=== PATIENT | female | born 1940 | race Caucasian/White ===

== ENCOUNTER → 2018-07-16 11:31 | Outpatient (CLI) | payer MEDICARE, OTHER, SELFPAY ==
--- NOTE | 2018-07-16 11:39 | RAD_ITS ---
STUDY: X-RAY - LEFT KNEE REASON FOR EXAM: Female, 78 years old. Pain. TECHNIQUE: 4 view(s) of the knee. COMPARISON: None. FINDINGS: Normal visualized distal femur. Normal visualized proximal tibia and fibula. Normal proximal tibiofibular articulation. There is no demonstrated fracture. Moderate narrowing of the medial tibiofemoral compartment, without irregularities or significant osteophytes. Normal lateral femorotibial compartment. Normal patellofemoral articulation. There is no demonstrated joint effusion. The soft tissue structures are unremarkable. RAD/Knee 4 or More Views IMPRESSION: No acute abnormality. Medial compartment degenerative changes less than typical for age. Electronically Signed: Ravinder Malhotra MD at 20:54 EDT , Service support ,
--- NOTE | 2018-07-16 11:40 | RAD_ITS ---
STUDY: X-RAY - RIGHT KNEE REASON FOR EXAM: Female, 78 years old. Pain. TECHNIQUE: 4 view(s) of the knee. COMPARISON: None. FINDINGS: Normal visualized distal femur. Normal visualized proximal tibia and fibula. Normal proximal tibiofibular articulation. There is no demonstrated fracture. 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 Normal lateral femorotibial compartment. There is mild degenerative arthrosis of the patellofemoral articulation. There is no demonstrated joint effusion. The soft tissue structures are unremarkable. RAD/Knee 4 or More Views IMPRESSION: No acute fracture or dislocation. Degenerative changes. Electronically Signed: Ravinder Malhotra MD at 20:55 EDT , Service support ,
== END ==
PROVIDERS: Family Provider Internal Medicine; PCP Internal Medicine; Referring Provider Internal Medicine; Visit Provider Internal Medicine
DX: M25.561 Pain in right knee (principal); M25.562 Pain in left knee; G89.29 Other chronic pain
CPT/HCPCS: 73564

== ENCOUNTER → 2018-09-03 14:13 | Outpatient (CLI) | payer MEDICARE, OTHER, SELFPAY ==
[2014-06-18 00:58] VITALS: BMI 35.9
[2018-09-03 14:33] LABS: International Normalized Ratio 2.7; Prothrombin Time (Protime)PT. 28.4 SECONDS (11.7-14.9)
== END ==
PROVIDERS: Family Provider Internal Medicine; PCP Internal Medicine; Visit Provider Internal Medicine
DX: Z79.01 Long term (current) use of anticoagulants (principal)
CPT/HCPCS: 85610

== ENCOUNTER → 2018-09-28 12:18 | Outpatient (CLI) | payer MEDICARE, OTHER, SELFPAY ==
[2014-06-18 00:58] VITALS: BMI 35.9
[2018-09-28 12:42] LABS: International Normalized Ratio 2.5; Prothrombin Time (Protime)PT. 26.8 SECONDS (11.7-14.9)
== END ==
PROVIDERS: Family Provider Internal Medicine; PCP Internal Medicine; Referring Provider Internal Medicine; Visit Provider Internal Medicine
DX: Z79.01 Long term (current) use of anticoagulants (principal)
CPT/HCPCS: 85610

== ENCOUNTER → 2018-10-02 09:53 | Outpatient (CLI) | payer MEDICARE, OTHER, SELFPAY ==
[2014-06-18 00:58] VITALS: BMI 35.9
[2018-10-02 10:08] LABS: International Normalized Ratio 1.3; Prothrombin Time (Protime)PT. 16.1 SECONDS (11.7-14.9)
== END ==
PROVIDERS: Family Provider Internal Medicine; PCP Internal Medicine; Referring Provider Internal Medicine; Visit Provider Internal Medicine
DX: Z79.01 Long term (current) use of anticoagulants (principal)
CPT/HCPCS: 85610

== ENCOUNTER → 2019-12-07 09:58 | Outpatient (CLI) | payer MEDICARE, OTHER, SELFPAY ==
[2014-06-18 00:58] VITALS: BMI 35.9
[2019-12-07 10:23] LABS: International Normalized Ratio 2.5
== END ==
PROVIDERS: PCP Internal Medicine; Referring Provider Internal Medicine; Visit Provider Internal Medicine
DX: I26.99 Other pulmonary embolism without acute cor pulmonale (principal)
CPT/HCPCS: 85610

== ENCOUNTER → 2019-12-10 10:08 | Outpatient (CLI) | payer MEDICARE, OTHER, SELFPAY ==
[2019-12-10 10:30] LABS: International Normalized Ratio 2.4; Prothrombin Time (Protime)PT. 25.8 SECONDS (11.7-14.9)
== END ==
PROVIDERS: PCP Internal Medicine; Referring Provider Internal Medicine; Visit Provider Internal Medicine
DX: Z79.01 Long term (current) use of anticoagulants (principal)
CPT/HCPCS: 85610

== ENCOUNTER → 2019-12-15 10:11 | Outpatient (CLI) | payer MEDICARE, OTHER, SELFPAY ==
[2014-06-18 00:58] VITALS: BMI 35.9
== END ==
PROVIDERS: PCP Internal Medicine; Visit Provider Internal Medicine
DX: Z79.01 Long term (current) use of anticoagulants (principal)
CPT/HCPCS: 85610

== ENCOUNTER → 2020-01-11 11:30 | Outpatient (CLI) | payer MEDICARE, OTHER, SELFPAY ==
[2014-06-18 00:58] VITALS: BMI 35.9
[2020-01-11 16:00] LABS: International Normalized Ratio 2.3; Prothrombin Time (Protime)PT. 24.9 SECONDS (11.7-14.9)
== END ==
PROVIDERS: PCP Internal Medicine; Referring Provider Internal Medicine; Visit Provider Internal Medicine
DX: I26.99 Other pulmonary embolism without acute cor pulmonale (principal)
CPT/HCPCS: 36415; 85610

== ENCOUNTER → 2020-03-06 14:18 | Outpatient (CLI) | payer MEDICARE, OTHER, SELFPAY ==
--- NOTE | 2020-03-06 14:21 | VDLE_ITS ---
Reason For Study: PAIN Procedure LEFT This is a venous duplex using B-mode, color GSV is normal. flow and spectral Doppler. CFV is compressible, spontaneous, phasic, Exam performed in department. competent, and demonstrates normal The exam was diagnostic. augmentation. A preliminary report was called and/or faxed FV is compressible, spontaneous, phasic, to Dr. Mosqueda @ [phone] @ 3:15 pm. competent and demonstrates normal Image #1 is of the LEFT POP V. augmentation. POP V is compressible, spontaneous, phasic, competent and demonstrates normal augmentation. T/P Trunk is compressible. PTV is compressible. LT PerV is compressible. NONVASCULAR structure noted in left pop fossa space measuring 4.3cm x 2.2cm. Lump noted on anterior kaplan measuring 2.33cm x 1.16cm C/W a hematoma. Interpretation Summary Deep veins of the left lower extremity are patent and compressible segmentally. There is no evidence of left lower extremity deep vein thrombosis. Valvular competence appears intact within the proximal deep venous system on the left . The left great saphenous vein appears patent and compressible segmentally. A non-vascular, hypoechoic structure is noted in the left popliteal space, measuring 4.3 cm x 2.2 cm. This probably represents a popliteal cyst. There appears to be a hematoma on the left pre-tibial area, measuring 2.33 cm x 1.16 cm. Clinical correlation is advised. Ordering Physician: Stacia Mosqueda Referring Physician: Stacia Mosqueda Performed By: Judy Romero, ANASTASIYA, RVT
== END ==
PROVIDERS: PCP Internal Medicine; Referring Provider Internal Medicine; Visit Provider Internal Medicine
DX: M79.661 Pain in right lower leg (principal)
CPT/HCPCS: 93971

== ENCOUNTER 2020-05-12 16:06 | Emergency (ER) | payer MEDICARE, OTHER, SELFPAY ==
[2020-05-12] VITALS (11 sets, daily range): BP systolic 125–158; BP diastolic 66–129; PULSE 60–82; RESP 16–22; TEMP 36.1; O2SAT 96–99; BMI 33.6
--- NOTE | 2020-05-12 16:48 | RAD_ITS ---
STUDY: X-RAY - RIGHT SHOULDER REASON FOR EXAM: Female, 80 years old. pt states fell on right shoulder today, c/o right shoulder pain radiating down arm with movement TECHNIQUE: 2 view(s) of the shoulder. COMPARISON: None. FINDINGS: There is complete anterior dislocation of the humeral head from the glenoid. No visualized fracture. Normal acromioclavicular joint. Normal acromion. Normal humeral head and visualized proximal humerus. The soft tissue structures are unremarkable. Normal visualized pulmonary apex. RAD/Shoulder min 2 Views IMPRESSION: Oblique anterior dislocation of the humeral head from the glenoid Electronically Signed: Giuliano Campos MD at 17:54 EST , Service support ,
[2020-05-12] MEDS: Ondansetron 4 MG/2 ML Vial IV (16:50)
[2020-05-12] MEDS: Morphine 4 MG/ML Syringe IV (16:50)
[2020-05-12] MEDS: Propofol 200 MG/20 ML Vial IV BOLUS (17:48)
--- NOTE | 2020-05-12 18:05 | RAD_ITS ---
STUDY: X-RAY - RIGHT SHOULDER REASON FOR EXAM: Female, 80 years old. post reduction right shoulder TECHNIQUE: 2 view(s) of the shoulder. COMPARISON: Initial exam on the same date at 5:15 PM FINDINGS: Follow-up study at 6:16 PM shows successful reduction of the previously dislocated right humeral head. Normal glenohumeral articulation. There is degenerative arthrosis of the acromioclavicular joint without inferior osseous spur formation. Normal acromion. No visualized fractures. Normal visualized pulmonary apex. RAD/Shoulder min 2 Views IMPRESSION: Successful reduction of the previously dislocated right humeral head Electronically Signed: Giuliano Campos MD at 19:06 EST , Service support ,
--- NOTE | 2020-05-12 18:36 | ED.VISSUMM ---
- ER Visit Summary Date of Service: 05/12/20 Chief Complaint: Right shoulder pain History of Present Illness: The patient is a [address] De. She is right-hand dominant. She reports that today she was feeding the birds and slipped on the snow and hit her right shoulder on a post. Denies any blow to the head or loss of consciousness. She was on Coumadin. She denies headache. No neck or back pain. She reports she has right shoulder pain is 3-10 at rest and 10 out of 10 with movement. She denies any numbness or weakness. Physical Examination: Vitals: Stable. Afebrile. Neck: No vertebral tenderness. Full ROM without difficulty. Cleared by NEXUS criteria. Back: No vertebral tenderness. General: A&O x 3. NAD. Cardiovascular exam: Regular rate and rhythm, no murmur, rub or gallop. Respiratory exam: Chest nontender. No crepitus. Clear to auscultation bilaterally. No wheezes or stridor. Abdominal exam: Soft, nontender, nondistended, normal bowel sounds. No pain in RUQ or LUQ specifically. No peritoneal signs. Extremity: Obvious anterior dislocation of her right shoulder. She has normal sensation light touch over her deltoid and distally. She is able to fire her deltoid. Test Results: Right shoulder x-ray shows an anterior dislocation without fracture. Repeat x-ray shows it to be reduced. CBC shows a white count of 4.1 with 71 segmented neutrophils. Chem-7 shows a chloride of 108. LFTs are normal. Lipase is normal. Emergency Department Course and Treatment: Patient initially had a IV placed and was given morphine and Zofran IV. When the x-ray was obtained she was given propofol IV. The shoulder was reduced and she tolerated this well. During her stay in the emerge department the patient developed epigastric pain that she reports is consistent with when she had pancreatitis in the past. Because of this she had blood work sent and was given a GI cocktail. She refused other pain medications. She reports that her pain is much improved. I discussed with her that if she had pancreatitis in the past that that her blood work could be falsely normal and suggested doing a CAT scan and she refused this. She would like to go home. She adamantly denies any blow to her abdomen in the fall. She denies abdominal pain recently or immediately following the fall. Treatment Plan: Patient will be discharged with [place], Zofran, and Colace. Instructed to follow-up with Dr. Overton, whom she is seen before, in 1 week for another exam. Return to the emergency department for any worsening symptoms. Disposition: To home in improved and stable condition. Impression: 1. Fall. 2. Right shoulder dislocation. 3. Reduction right shoulder dislocation. 4. Procedural sedation for 9 minutes. 5. Abdominal pain, uncertain cause. This note was generated with [employer] dictation software. It may contain incorrect words, spelling, and punctuation that were not noted in review of the chart prior to signing ED Disposition - Plan for ED Patient: Instructions: ED Dislocation: Shoulder (Reduced) Prescriptions: Docusate Sodium [Colace] 100 mg PO DAILY #20 cap Prescription Printed Hydrocodone Bitart/Apap 5-325 [[place] 5MG-325MG] 1 tab PO Q4H PRN PRN 2 Days #10 tab PRN Reason: Pain Prescription Printed Ondansetron [Zofran Odt] 4 mg PO Q8H PRN PRN #10 tab PRN Reason: Nausea Prescription Printed Referrals: Bowen Overton DO [STAFF PHYSICIAN] - 1 Week
[2020-05-12] MEDS: Mag Hydrox/Al Hydrox/Simeth 30 ML UDC PO (19:22)
[2020-05-12 19:34] LABS: Absolute Neutrophil Count 2.9 X10^3/uL (2.0-7.7); Basophil# 0.02 X10^3/uL; Basophil% 0.5 % (0-1); Eosinophil# 0.01 X10^3/uL; Eosinophils% 0.2 % (0-5); Hematocrit 40.2 % (37-47); Hemoglobin 13.1 g/dL (12.0-15.0); Mean Corp Hgb Conc 32.6 g/dL (32-36); Mean Corpuscular Hgb 28.9 pg (27.0-32.0); Mean Corpuscular Volume 88.7 fL (81-99); Mean Platelet Vol. 8.6 fl (6.2-12.0); Monocyte# 0.25 X10^3/uL; Monocyte% 6.1 % (0-10); NRBC Flagged by Analyzer 0 % (0-5); Platelet Count 194 K/mm3 (150-450); RBC Distribution Width CV 14.8 % (11.6-14.6); RBC Distribution Width SD 47.6 fl (35.1-43.9); Red Blood Count 4.53 M/mm3 (4.2-5.4); White Blood Count 4.1 K/mm3 (4.4-11.0)
[2020-05-12 19:48] LABS: AST(SGOT) 26 U/L (15-37); Alanine Aminotransfer ALT/SGPT 30 U/L (13-56); Albumin, Serum 3.5 g/dL (3.2-5.0); Alkaline Phosphatase 73 U/L (45-117); Anion Gap 4 (5-15); BUN 16 mg/dL (7-18); Calcium,Total 8.7 mg/dL (8.5-10.1); Chloride 108 mmol/L (98-107); EST Glomerular Filtration Rate 86 mL/min (>60); Est Glom Filt Rate - Afr Amer 105 mL/min (>60); Estimated Creatinine Clearance 41.05 ml/min; Globulin 3.6 g/dL (2.2-4.2); Glucose 104 mg/dL (74-106); Lipase 89 U/L (73-393); Potassium 4.1 mmol/L (3.5-5.1); Protein, Total 7.1 g/dL (6.4-8.2); Sodium Level 138 mmol/L (136-145)
== END 2020-05-12 21:00 | disposition home or self-care (01) ==
PROVIDERS: Emergency Provider Emergency Medicine; PCP Internal Medicine
DX: S43.004A Unspecified dislocation of right shoulder joint, initial encounter (principal); R10.9 Unspecified abdominal pain; Z79.01 Long term (current) use of anticoagulants; W00.0XXA Fall on same level due to ice and snow, initial encounter
CPT/HCPCS: 73030; 80053; 83690; 85025; 96374; 96375; 99152; 99285; J7030; A4216; J2405

== ENCOUNTER → 2022-09-19 | Outpatient (CLI) | payer MEDICARE, OTHER, SELFPAY ==
--- NOTE | 2022-09-19 12:34 | ECHOD_ITS ---
Reason For Study: Mitral Regurgitation Procedure This was a 2D Doppler, Color Flow transthoracic echocardiogram. Exam performed in department. Left Ventricle Normal LV size. Moderate concentric left ventricular hypertrophy. The left ventricular ejection fraction is 65 %. Diastolic function is indeterminate. Right Ventricle Normal right ventricle. Atria The left atrium is severely enlarged. The right atrium is mildly enlarged. Mitral Valve Moderate mitral annular calcification. Mild (1+) mitral valve insufficiency. Tricuspid Valve Trivial tricuspid valve insufficiency. Unable to estimate RV systolic pressure due to insufficient tricuspid regurgitant envelope. Aortic Valve Mild aortic stenosis. Pulmonic Valve The pulmonic valve is not well visualized. Great Vessels Calcified aortic root. Normal sized aortic root. Pericardium/Pleural No pericardial effusion. Epicardial fat. MMode/2D Measurements & Calculations LVIDd: 4.8 cm IVSd: 1.5 cm LVOT diam: 2.0 cm LVIDs: 2.7 cm LVPWd: 1.4 cm LVOT area: 3.2 cm2 RVDd: 3.2 cm FS: 43.4 % Ao root diam: 3.6 cm LAV(MOD-bp): 61.6 ml LVAd ap4: 22.3 cm2 LA dimension: 4.7 cm LAV(MOD-bp) Indexed: 32.2 ml/m2 LVLd ap4: 6.6 cm LAV(MOD-sp2): 61.9 ml EDV(MOD-sp4): 60.6 ml LAV(MOD-sp4): 59.7 ml EDV(sp4-el): 63.3 ml LVAs ap4: 8.3 cm2 LVLs ap4: 4.8 cm ESV(MOD-sp4): 13.3 ml ESV(sp4-el): 12.1 ml EF(MOD-sp4): 78.1 % EF(sp4-el): 80.9 % SV(MOD-sp4): 47.4 ml SV(sp4-el): 51.2 ml Aortic Valve Planimetry: 1.6 cm2 LA A4 area: 20.8 cm2 RA A4 area: 17.8 cm2 Time Measurements MV dec time: 0.23 sec Doppler Measurements & Calculations MV E max hussein: 77.6 cm/sec Lat Peak E' Hussein: 6.7 cm/sec Med Peak E' Hussein: 5.3 cm/sec MV A max hussein: 101.1 cm/sec E/E' lat: 11.6 E/E' med: 14.5 MV E/A: 0.77 MV V2 max: 123.4 cm/sec MV P1/2t max hussein: 94.9 cm/sec Ao V2 max: 186.7 cm/sec MV max P.1 mmHg MV P1/2t: 84.7 msec Ao max P.0 mmHg MV V2 mean: 62.3 cm/sec Ao V2 mean: 132.0 cm/sec MV mean P.8 mmHg MV dec slope: 328.0 cm/sec2 Ao mean P.7 mmHg MV V2 VTI: 36.3 cm MVA(P1/2t): 2.6 cm2 Ao V2 VTI: 44.1 cm AV (velocity ratio): 0.75 MVA(VTI): 2.9 cm2 LUC(I,D): 2.4 cm2 LUC(V,D): 2.2 cm2 LV V1 max: 126.6 cm/sec MR max hussein: 486.7 cm/sec SV(LVOT): 105.7 ml LV V1 max P.4 mmHg MR max P.7 mmHg LV V1 mean P.0 mmHg LV V1 mean: 95.3 cm/sec LV V1 VTI: 33.1 cm PA V2 max: 102.9 cm/sec PA V2 mean: 75.1 cm/sec ECHO/Echo Complete Interpretation Summary The left ventricular ejection fraction is 65 %. Diastolic function is indeterminate. The left atrium is severely enlarged. Moderate mitral annular calcification. Mild (1+) mitral valve insufficiency. Mild aortic stenosis. Ordering Physician: Stacia Mosqueda Referring Physician: Stacia Mosqueda Performed By: Stone Burt and Student
== END | disposition home or self-care (01) ==
LOC: CVS 12:33
PROVIDERS: PCP Internal Medicine; Referring Provider Internal Medicine; Visit Provider Internal Medicine
DX: I34.0 Nonrheumatic mitral (valve) insufficiency (principal)
CPT/HCPCS: 93306

== ENCOUNTER 2024-09-21 11:36 | Inpatient (IN) | payer MEDICARE, OTHER, SELFPAY ==
[2024-09-21 11:37] VITALS: BP 162/80; PULSE 78; RESP 16; TEMP 36.7; O2SAT 98; BMI 31.4
--- NOTE | 2024-09-21 12:23 | CT_ITS ---
PROCEDURE: CTA ABD/PELVIS W/WO CONTRAST 09/21/2024 REASON FOR EXAM: RECTAL BLEEDING TECHNIQUE: CTA ABD/PELVIS W/WO CONTRAST Multiplanar Sagittal and Coronal images were obtained. CONTRAST: 100 cc Isovue 370 One or more dose reduction techniques were used (e.g., Automated exposure control, adjustment of the mA and/or kV according to patient size, use of iterative reconstruction technique). RADIATION DOSE SUMMARY: DLP: 1181.06 mGycm COMPARISON: None FINDINGS: Aorta: The abdominal aorta measures 2.8 cm of the diaphragmatic hiatus, 2.8 cm below the level of the renal vessels with scattered plaque noted. Iliac Arteries: The proximal right iliac measures 1.5 cm. The proximal left iliac measures 1.4 cm with scattered plaque noted. Celiac: Patent SMA: Patent LEAH : Patent Right Renal: Patent Left Renal: Patent Other Findings: Images through the lung bases show minimal atelectasis or scar at the left lung base. There is no free air. The liver and spleen are unremarkable. The gallbladder is absent. The adrenals are normal. The kidneys show parapelvic cysts on the right and left with no definite stone or ureteral obstruction. There is no pathologic adenopathy by size criteria. There is a 3.0 cm uncomplicated fat containing right inguinal hernia. There is diverticulosis throughout the colon with no definite acute diverticulitis. The bladder is unremarkable. The appendix is not demonstrated. CT/CTA Abd/Pelvis W/WO Contrast IMPRESSION: There is a 3.0 cm uncomplicated fat containing right inguinal hernia. There is diverticulosis throughout the colon with no definite acute diverticuli tis. Atherosclerotic plaque is noted with no evidence of significant stenosis or occ lusion in the abdomen or pelvis. Reading Location: [facility]
--- NOTE | 2024-09-21 12:24 | ED.VIS.GI ---
HPI HPI - GI History of Present Illness Chief Complaint: GI Bleed Informant: patient and family Narrative Narrative: Sent in from PCP office bright red blood per rectum. She is on warfarin history of factor V Leiden and history of PE and DVT. Last dose of warfarin yesterday. 2 days ago noted blood in her stools with clots. She had additional 4 episodes yesterday along with 3 this morning. No abdominal pain. No lightheaded symptoms. No history of colonoscopy in the past. She has seen GI Dr. Chowdhury in the past. Last bright red blood per rectum 10 AM. [facility] Medical History Hx of pancreatitis Murmur, cardiac Fatty liver Bakers cyst Vitamin D deficiency Abnormal echocardiogram History of DVT of lower extremity History of pulmonary embolus (PE) Obesity (BMI 30-39.9) Back pain GERD (gastroesophageal reflux disease) Home Medications ?Medication ?Instructions ?Recorded ?Last Taken ?Type ascorbic acid (vitamin C) 500 mg 500 mg PO DAILY 11/14/22 Unknown History tablet cinnamon bark 500 mg capsule 500 mg PO 4X/DAY 11/14/22 Unknown History (Cinnamon) coenzyme Q10 10 mg capsule 10 mg PO DAILY 11/14/22 Unknown History ergocalciferol (vitamin D2) 1,250 1,250 mcg PO QWEEK 11/14/22 Unknown History mcg (50,000 unit) capsule [id number] 8 mg-folic 400 1 tab PO DAILY 11/14/22 Unknown History mcg-K 50 mcg-lutein 300 mcg tablet (Centrum Silver Women) turmeric 400 mg capsule mg PO 11/14/22 Unknown History vitamin B complex 1 tab PO DAILY 11/14/22 Unknown History zinc gluconate 100 mg tablet PO 11/14/22 Unknown History warfarin 6 mg tablet (Jantoven) 6 mg PO DAILY@1700 12/06/22 Unknown History Allergy/AdvReac Type Severity Reaction Status Date / Time codeine Allergy Unknown Verified 09/21/24 11:38 Family History Mother Heart disease Father Heart disease Sister Heart disease Surgical History History of hysterectomy History of cholecystectomy Social History Smoking Status: Never smoker alcohol intake: never caffeine: Yes Type: coffee and tea ROS ROS ED Constitutional Constitutional ED: Denies fever(s) Cardiovascular Cardiovascular: Denies chest pain Respiratory/Chest Respiratory/Chest: Denies cough Gastrointestinal Gastrointestinal: Reports other Details: Bright red blood per rectum ; Denies abdominal pain, diarrhea or vomiting Musculoskeletal Musculoskeletal: Denies none Integumentary Denies rash or wounds Neurologic Neurologic: Denies weakness EXAM Physical Exam Const Vital Signs: 09/21/24 11:37 09/21/24 13:37 Temperature 98.1 F Temperature Source Oral Pulse Rate 78 89 Respiratory Rate 16 18 Blood Pressure 162/80 H 114/93 H Blood Pressure Mean 107 100 Pulse Ox 98 94 Oxygen Delivery Method Room Air Room Air Positive well nourished and well developed General Appearance ED: well developed and NAD HEENT Reports moist mucous membranes normocephalic and atraumatic Eyes General Eye ED: Yes normal appearance of both eyes; Negative for pale conjunctiva or scleral icterus Neck full ROM Chest Wall Chest: Negative for tenderness Resp normal respiratory effort and normal air movement Effort and Inspection: symmetric chest movement; Negative for respiratory distress Cardio regular rate, regular rhythm and no murmurs Peripheral Pulses: pulses 2+ throughout GI normal to inspection, nondistended, normoactive bowel sounds and non-tender GI Narrative: Rectum there is no hemorrhoids there was bright red blood residual noted around the anal region. Palpation: Negative for guarding or rebound tenderness present Extremity normal to inspection General Extremety ED: Negative for edema or tenderness General Extremity: Negative for edema Neuro oriented x3 and no sensory deficits noted Sensorium / Orientation: awake and alert Skin no rashes or lesions noted and no wounds MDM MDM MDM Narrative Medical decision making narrative: Interventions / MDM: Differential diagnosis: Bright red blood per rectum, chronic anticoagulation therapy, diverticular bleed Diagnosis considered but do not suspect: Diverticulitis however CT negative. My EKG interpretation: N/A Imaging independently reviewed and interpreted by myself: CT angiogram abdomen pelvis: No extravasation noted, scattered iliac plaques, fat-containing umbilical hernia. External documents reviewed: N/A Test considered but not ordered:N/A ED course: Increasing bright red blood per rectum on warfarin. No abdominal pain. Blood pressure stable. Do not feel reversal is necessary at this time. Will check labs including INR. Fluids will be started. CT angiogram obtained for evaluation of bright red blood per rectum. 1428: Blood count 11.8 it was 13.01 May 2020. Blood pressure currently 140/93. BUN [address] scan fat-containing Billick hernia, scattered plaques of the arteries however no reported extravasation was noted. On reevaluation no pain however he was just placed on the commode and she was having a bowel movement with bloody stools. INR is 2.8. I will discuss with hospitalist for admission. I spoke with Dr. Jc for admission. Re-evaluation: stable Disposition discussed with patient/family/significant other: Patient and family Case discussed with consulting clinician: hospitalist This note was generated with [employer] dictation software. It may contain incorrect words, spelling, and punctuation that were not noted in checking the note before signing. Lab Data Attestation: I reviewed the patient's lab results. Labs: Laboratory Results - last 24 hr 09/21/24 09/21/24 11:55 12:40 WBC 2.8 L RBC 3.94 L Hgb 11.8 L Hct 35.7 L MCV 90.6 MCH 29.9 MCHC 33.1 RDW Std Deviation 48.5 H RDW Coeff of Nabila 14.5 Plt Count 158 MPV 8.9 Immature Gran % (Auto) 1.500 H Neut % (Auto) 49.0 Lymph % (Auto) 40.0 Dickens % (Auto) 8.4 Eos % (Auto) 0.7 Baso % (Auto) 0.4 Absolute Neuts (auto) 1.4 L Absolute Lymphs (auto) 1.10 Nucleated RBC % 0 PT 29.9 H INR 2.8 APTT 40.7 H Sodium 141 Potassium 3.8 Chloride 107 Carbon Dioxide 22.1 Anion Gap 12 BUN 18 Creatinine 0.75 Estim Creat Clear Calc 57.54 Est GFR (MDRD) Non-Af 79 BUN/Creatinine Ratio 23.9 H Glucose 123 H Calcium 9.1 Blood Type A POSITIVE Antibody Screen NEGATIVE Radiography Diagnostic Testing: Clinical Impression(s) from Imaging Studies Abdomen/Pelvis CTA 09/21/24 12:23 IMPRESSION: There is a 3.0 cm uncomplicated fat containing right inguinal hernia. There is diverticulosis throughout the colon with no definite acute diverticulitis. Atherosclerotic plaque is noted with no evidence of significant stenosis or occlusion in the abdomen or pelvis. [facility] Plan Dx/Rx/DC Orders Clinical Impression: Rectal bleeding, Chronic anticoagulation, Hx pulmonary embolism, History of factor V Leiden mutation Disposition Disposition: Acute Care Hospital [facility]
[2024-09-21] MEDS: 0.9% Normal Saline (1000mL) 1,000 ML 125 ML IV ×2 (12:41→17:35)
[2024-09-21 12:46] LABS: Absolute Neutrophil Count 1.4 X10^3/uL (2.0-7.7); Basophil# 0.01 X10^3/uL; Basophil% 0.4 % (0-1); Eosinophil# 0.02 X10^3/uL; Eosinophils% 0.7 % (0-5); Hematocrit 35.7 % (37-47); Hemoglobin 11.8 g/dL (12.0-15.0); Mean Corp Hgb Conc 33.1 g/dL (32-36); Mean Corpuscular Hgb 29.9 pg (27.0-32.0); Mean Corpuscular Volume 90.6 fL (81-99); Mean Platelet Vol. 8.9 fl (6.2-12.0); Monocyte# 0.23 X10^3/uL; Monocyte% 8.4 % (0-10); NRBC Flagged by Analyzer 0 % (0-5); Neutrophil # 1.35 X10^3/uL (2.7-7.7); Platelet Count 158 K/mm3 (150-450); RBC Distribution Width CV 14.5 % (11.6-14.6); RBC Distribution Width SD 48.5 fl (35.1-43.9); Red Blood Count 3.94 M/mm3 (4.2-5.4); White Blood Count 2.8 K/mm3 (4.4-11.0)
[2024-09-21 12:58] LABS: International Normalized Ratio 2.8; Prothrombin Time (Protime)PT. 29.9 SECONDS (11.7-14.9)
[2024-09-21 12:59] LABS: Partial Thromboplast Time 40.7 Seconds (24.1-36.2)
[2024-09-21 13:10] LABS: Anion Gap 12 (5-15); BUN 18 mg/dL (4-19); BUN/Creat Ratio 23.9 RATIO (10-20); Calcium,Total 9.1 mg/dL (7.6-11.0); Carbon Dioxide 22.1 mmol/L (21.0-32.0); Chloride 107 mmol/L (98-108); Creatinine, Serum 0.75 mg/dL (0.70-1.20); EST Glomerular Filtration Rate 79 (>60); Estimated Creatinine Clearance 57.54 ml/min (50-250); Glucose 123 mg/dL (70-99); Potassium 3.8 mmol/L (3.3-5.1); Sodium Level 141 mmol/L (133-145)
[2024-09-21 13:37] VITALS: BP 114/93; PULSE 89; RESP 18; O2SAT 94
[2024-09-21 15:00] VITALS: BP 135/77; PULSE 62; RESP 20; O2SAT 100
--- NOTE | 2024-09-21 15:11 | PCM.HP.STD ---
HPI - General General Date of Admission: 09/21/24 Date of Service: 09/21/24 Chief Complaint: Red blood per rectum HPI Narrative DANISH YAP, is a 84-year-old female with history of DVT/PE with history of factor V Leiden on Coumadin presented to [facility] ED 09/21/2024 due to bright red blood per rectum with clots. 2 days ago she noted blood in stool and had an additional 4 episodes yesterday with 1 this morning, did have 1 more in the ED as well. No lightheadedness or abdominal pain, no history of scopes. In the ED temperature 98.1, respiratory rate 78 with blood pressure 162/80, pulse ox 98% on room air. Patient with white blood cell count 2.8 and hemoglobin 11.8, INR 2.8 and BMP overall benign aside from glucose of 123 slightly elevated. CTA of abdomen obtained which showed an uncomplicated fat-containing right inguinal hernia, diverticulosis without diverticulitis and atherosclerotic plaque with no evidence of significant stenosis or occlusion. Given patient's high risk and continued bleeding hospitalist contacted for admission. Patient evaluated with family member at bedside, reportedly patient was in her usual health until 2 days ago when she began having blood and clots in her stool, did have the 4 episodes yesterday and 3 episodes earlier today followed by 1 in the ED. Feels little bit weak but not lightheaded, no abdominal pain or epigastric pain, no nausea or vomiting, ROS otherwise negative [facility] Medical History Hx of pancreatitis Murmur, cardiac Fatty liver Bakers cyst Vitamin D deficiency Abnormal echocardiogram History of DVT of lower extremity History of pulmonary embolus (PE) Obesity (BMI 30-39.9) Back pain GERD (gastroesophageal reflux disease) Home Medications ?Medication ?Instructions ?Recorded ?Last Taken ?Type ascorbic acid (vitamin C) 500 mg 500 mg PO DAILY 11/14/22 Unknown History tablet cinnamon bark 500 mg capsule 500 mg PO 4X/DAY 11/14/22 Unknown History (Cinnamon) coenzyme Q10 10 mg capsule 10 mg PO DAILY 11/14/22 Unknown History ergocalciferol (vitamin D2) 1,250 1,250 mcg PO QWEEK 11/14/22 Unknown History mcg (50,000 unit) capsule [id number] 8 mg-folic 400 1 tab PO DAILY 11/14/22 Unknown History mcg-K 50 mcg-lutein 300 mcg tablet (Centrum Silver Women) turmeric 400 mg capsule mg PO 11/14/22 Unknown History vitamin B complex 1 tab PO DAILY 11/14/22 Unknown History zinc gluconate 100 mg tablet PO 11/14/22 Unknown History warfarin 6 mg tablet (Jantoven) 6 mg PO DAILY@1700 12/06/22 Unknown History Allergy/AdvReac Type Severity Reaction Status Date / Time codeine Allergy Unknown Verified 09/21/24 11:38 Family History Mother Heart disease Father Heart disease Sister Heart disease Surgical History History of hysterectomy History of cholecystectomy Social History Smoking Status: Never smoker alcohol intake: never caffeine: Yes Type: coffee and tea ROS ROS Narrative General: Denies fever/chills, feels a little bit weak HENT: Denies headache, denies stuffy nose, denies sore throat EYES: Denies changes in vision Resp: Denies cough, denies shortness of breath Cardiac: Denies chest pain GI: Denies abdominal pain, bright red blood per rectum bowel, denies nausea/vomiting : Denies changes in urination Extremity: Denies swelling MSK: Endorses weakness Neuro: Denies any numbness/tingling Heme: Denies any bleeding or bruising Skin: Denies rashes Psychiatric: No complaints voiced Vital Signs Vital Signs Vital Signs: 09/21/24 11:37 09/21/24 13:37 Temperature 98.1 F Temperature Source Oral Pulse Rate 78 89 Respiratory Rate 16 18 Blood Pressure 162/80 H 114/93 H Blood Pressure Mean 107 100 Pulse Ox 98 94 Oxygen Delivery Method Room Air Room Air Weight Weight: 85.531 kg Body Mass Index (BMI) 31.4 Physical Exam Narrative General: Alert, oriented, no apparent distress HEENT: Atraumatic, normocephalic Eyes: Anicteric, normal conjunctiva, extraocular movements grossly intact Neck: Supple Respiratory: Clear to auscultation bilaterally, normal respiratory effort Cardiovascular: Regular rate and rhythm, systolic ejection murmur GI: Soft, nontender, nondistended Extremities: No edema Musculoskeletal: Moving all extremities Neuro: No overt focal neurological deficits Skin: No rashes appreciated Psych: Cooperative Results Lab / Micro Data 09/21/24 11:55 09/21/24 11:55 Labs: Laboratory Results - last 24 hr 09/21/24 11:55: WBC 2.8 L, RBC 3.94 L, Hgb 11.8 L, Hct 35.7 L, MCV 90.6, MCH 29.9, MCHC 33.1, RDW Std Deviation 48.5 H, RDW Coeff of Nabila 14.5, Plt Count 158, MPV 8.9, Immature Gran % (Auto) 1.500 H, Neut % (Auto) 49.0, Lymph % (Auto) 40.0, [place] % (Auto) 8.4, Eos % (Auto) 0.7, Baso % (Auto) 0.4, Absolute Neuts (auto) 1.4 L, Absolute Lymphs (auto) 1.10, Nucleated RBC % 0, PT 29.9 H, INR 2.8, APTT 40.7 H, Sodium 141, Potassium 3.8, Chloride 107, Carbon Dioxide 22.1, Anion Gap 12, BUN 18, Creatinine 0.75, Estim Creat Clear Calc 57.54, Est GFR (MDRD) Non-Af 79, BUN/Creatinine Ratio 23.9 H, Glucose 123 H, Calcium 9.1 09/21/24 12:40: Blood Type A POSITIVE, Antibody Screen NEGATIVE Imaging Radiology Impression Abdomen/Pelvis CTA 09/21/24 12:23 IMPRESSION: There is a 3.0 cm uncomplicated fat containing right inguinal hernia. There is diverticulosis throughout the colon with no definite acute diverticulitis. Atherosclerotic plaque is noted with no evidence of significant stenosis or occlusion in the abdomen or pelvis. Reading Location: [facility] Assessment & Plan Assessment/Plan (1) Rectal bleeding: (2) Hx pulmonary embolism: (3) History of factor V Leiden mutation: PLAN: Plan # Bright red blood per rectum, suspect acute GI bleed - Will trend H&H -When evaluated patient in ED blood pressure was in the 150s and patient was not feeling lightheaded so we will hold off on reversing Coumadin especially given her high risk of clotting, if patient continues to have multiple episodes or develops any low blood pressure, tachycardia, symptoms will reverse -GI consult -N.p.o. midnight -Clear liquid diet, bowel prep # History of DVT/PE with factor V Leiden -INR 2.8, will hold off on reversing as above -Last clot she estimates was before 2019 -Holding home Coumadin #DVT ppx: SCDs Elena Jc MD Charges/Coding Visit Charges Inpatient E&M: 56279 Init Hosp L2
[2024-09-21 15:40] VITALS: BP 135/77; PULSE 62; RESP 20; TEMP 36.7; O2SAT 100
--- NOTE | 2024-09-21 15:45 | CASEMGMT ---
Care Management Face to Face with patient for initial transition planning/care coordination assessment in the ED.? This service writer advisor introduced self and role at [facility]. Patient alert and oriented. Patient willing to participate in assessment and is able to answer all questions appropriately.? Care providers, pharmacy, and demographics verified. Admitting Diagnosis: ?GI Bleed Other diagnosis history: ?DVT, PE, GERD, ?hx pancreatitis PCP: ?Panda Specialists: ?None Preferred Pharmacy: [facility] pharmacy Insurance: ?Medicare Prescription Benefit: ?Yes Living Will/HPOA: ?Completed LNOK: ?daughter Living Arrangements: ?Patient lives alone in a condo, reports to being independent with ADLs and IADLs Transportation: ?patient drives DME: ?grab bar in shower, shower bench, blood pressure cuff,? 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 Patient denies any further needs or concerns at this time. Disposition Plan: admission to acute; RN CM/SW to follow for discharge planning needs that may arise. Lianna Santiago, DULSER, METAL BONDING CRIB ATTENDANT
--- NOTE | 2024-09-21 15:45 | CASEMGMT ---
Care Management Face to Face with patient for initial transition planning/care coordination assessment in the ED.? This freelance writer introduced self and role at [facility]. Patient alert and oriented. Patient willing to participate in assessment and is able to answer all questions appropriately.? Care providers, pharmacy, and demographics verified. Admitting Diagnosis: ?GI Bleed Other diagnosis history: ?DVT, PE, GERD, ?hx pancreatitis PCP: ?Panda Specialists: ?None Preferred Pharmacy: [facility] pharmacy Insurance: ?Medicare Prescription Benefit: ?Yes Living Will/HPOA: ?Completed LNOK: ?daughter Living Arrangements: ?Patient lives alone in a condo, reports to being independent with ADLs and IADLs Transportation: ?patient drives DME: ?grab bar in shower, shower bench, blood pressure cuff,? 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 Patient denies any further needs or concerns at this time. Disposition Plan: admission to acute; RN CM/SW to follow for discharge planning needs that may arise. Lianna Santiago, DINING ROOM HOSTESS, RESTAURANT CREW MEMBER
[2024-09-21 17:31] VITALS: BP 137/69; PULSE 62; RESP 18; TEMP 36.6; O2SAT 97
[2024-09-21] MEDS: 0.9% Saline Lock 10 ML Syringe IV (17:35)
[2024-09-21 17:36] VITALS: BMI 33.9
[2024-09-21] MEDS: Polyethylene Glycol 3350 BOWEL PREP PO (18:48)
[2024-09-21] MEDS: Bisacodyl 5 MG Tablet 20 MG PO (18:52)
--- NOTE | 2024-09-21 18:56 | CON.PCM.GI_ITS ---
HPI Consult Data Date of Consult: 09/21/24 HPI Narrative Reason for Consultation: GI bleed HPI Narrative: DANISH YAP, is a 84 F who presents with lower GI bleed. She was sent in from PCP office bright red blood per rectum. She is on warfarin history of factor V Leiden and history of PE and DVT. Her last dose of warfarin yesterday. She admits to starting to have lower GI bleeding 2 days ago which caused her to see her PCP. She had additional 4 episodes yesterday along with 3 this morning. She denies any abdominal pain. She has no history of colonoscopy in the past. Her INR in the ED was 2.8 and her hemoglobin was 11.6. CT/CTA Abd/Pelvis W/WO Contrast IMPRESSION: There is a 3.0 cm uncomplicated fat containing right inguinal hernia. There is diverticulosis throughout the colon with no definite acute diverticulitis. Atherosclerotic plaque is noted with no evidence of significant stenosis or occlusion in the abdomen or pelvis PFSH Medical History Hx of pancreatitis Murmur, cardiac Fatty liver Bakers cyst Vitamin D deficiency Abnormal echocardiogram History of DVT of lower extremity History of pulmonary embolus (PE) Obesity (BMI 30-39.9) Back pain GERD (gastroesophageal reflux disease) Home Medications ?Medication ?Instructions ?Recorded ?Last Taken ?Type ascorbic acid (vitamin C) 500 mg 500 mg PO DAILY suppl ement 11/14/22 Unknown History tablet cinnamon bark 500 mg capsule 500 mg PO 4X/DAY suppleme nt 11/14/22 Unknown History (Cinnamon) coenzyme Q10 10 mg capsule 10 mg PO DAILY supplement 0 11/14/22 Unknown History ergocalciferol (vitamin D2) 1,250 1,250 mcg PO QWEEK s upplement 11/14/22 Unknown History mcg (50,000 unit) capsule [id number]-wwsg-csun 8 mg-folic 400 1 tab PO DAILY suppl ement 11/14/22 Unknown History mcg-K 50 mcg-lutein 300 mcg tablet (Centrum Silver Women) turmeric 400 mg capsule 400 mg PO DAILY supplement 0 11/14/22 Unknown History vitamin B complex 1 tab PO DAILY supplement Unknown History zinc gluconate 100 mg tablet 100 mg PO DAILY supplemen t 11/14/22 Unknown History warfarin 6 mg tablet (Jantoven) 6 mg PO DAILY@1700 blo od thinner 12/06/22 Unknown History Allergy/AdvReac Type Severity Reaction Status Date / Time codeine Allergy Unknown Verified 09/21/24 11:38 Family History Mother Heart disease Father Heart disease Sister Heart disease Surgical History History of hysterectomy History of cholecystectomy Social History Smoking Status: Never smoker alcohol intake: never caffeine: Yes Type: coffee and tea ROS Constitutional Constitutional: Denies fatigue, fever(s), poor appetite, weight gain or weight loss Gastrointestinal Gastrointestinal: Denies belching, bloating, change in bowel habits, change in stool character, chewing difficulty, coffee ground emesis, constipation, cramping, diarrhea, dyspepsia, dysphagia, early satiety, excessive flatus, fecal incontinence, heartburn, hematemesis, hematochezia, hemorrhoids, loose stools, melena, nausea, odynophagia, rectal bleeding, tenesmus, vomiting or weight changes Physical Exam Const alert, oriented x3, no apparent distress and healthy appearing General Appearance: cooperative GI normal to inspection, nondistended, normoactive bowel sounds, soft to palpation, non-tender and non-distended Percussion: normal to percussion Rectal Exam: deferred Lab / Micro Data 09/21/24 11:55 09/21/24 11:55 Labs: Laboratory Results - last 24 hr 09/21/24 11:55: WBC 2.8 L, RBC 3.94 L, Hgb 11.8 L, Hct 35.7 L, MCV 90.6, MCH 29.9, MCHC 33.1, RDW Std Deviation 48.5 H, RDW Coeff of Nabila 14.5, Plt Count 158, MPV 8.9, Immature Gran % (Auto) 1.500 H, Neut % (Auto) 49.0, Lymph % (Auto) 40.0, [place] % (Auto) 8.4, Eos % (Auto) 0.7, Baso % (Auto) 0.4, Absolute Neuts (auto) 1.4 L, Absolute Lymphs (auto) 1.10, Nucleated RBC % 0, PT 29.9 H, INR 2.8, APTT 40.7 H, Sodium 141, Potassium 3.8, Chloride 107, Carbon Dioxide 22.1, Anion Gap 12, BUN 18, Creatinine 0.75, Estim Creat Clear Calc 57.54, Est GFR (MDRD) Non-Af 79, BUN/Creatinine Ratio 23.9 H, Glucose 123 H, Calcium 9.1 09/21/24 12:40: Blood Type A POSITIVE, Antibody Screen NEGATIVE, Crossmatch See Detail Imaging Radiology Impression Abdomen/Pelvis CTA 09/21/24 12:23 IMPRESSION: There is a 3.0 cm uncomplicated fat containing right inguinal hernia. There is diverticulosis throughout the colon with no definite acute diverticulitis. Atherosclerotic plaque is noted with no evidence of significant stenosis or occlusion in the abdomen or pelvis. Reading [facility] Assessment & Plan Assessment/Plan (1) Chronic anticoagulation: (2) Hx pulmonary embolism: (3) Rectal bleeding: PLAN: 84-year-old with history of factor V Leiden disorder causing multiple PEs and DVTs on chronic anticoagulation with warfarin presents with acute onset of lower lower GI bleeding over the last 2 days. Differential diagnosis does include diverticular bleeding, hemorrhoidal bleeding, stercoral ulcer, angiodysplasia, neoplasia. She is having a colonoscopy in the past. She should undergo colonoscopy about her lower GI tract since she needs to be on anticoagulation and cannot be stopped. She was explained alternatives, risk, benefits including not withstanding bleeding, infection, sepsis, perforation, need for emergent surgery and . She will have an ASA of 3. Charges/Coding Visit Charges Inpatient E&M: 39932 Init Hosp L3
[2024-09-21 20:52] LABS: Hematocrit 33.6 % (37-47); Hemoglobin 10.8 g/dL (12.0-15.0); Mean Corp Hgb Conc 32.1 g/dL (32-36); Mean Corpuscular Hgb 29.8 pg (27.0-32.0); Mean Corpuscular Volume 92.6 fL (81-99); Mean Platelet Vol. 8.8 fl (6.2-12.0); Platelet Count 138 K/mm3 (150-450); RBC Distribution Width CV 14.6 % (11.6-14.6); RBC Distribution Width SD 49.7 fl (35.1-43.9); Red Blood Count 3.63 M/mm3 (4.2-5.4); White Blood Count 3.2 K/mm3 (4.4-11.0)
[2024-09-21 21:11] VITALS: BMI 33.9
[2024-09-21 21:20] VITALS: BP 135/59; PULSE 69; RESP 18; TEMP 36.3; O2SAT 97
[2024-09-21 21:21] LABS: International Normalized Ratio 2.8; Prothrombin Time (Protime)PT. 29.7 SECONDS (11.7-14.9)
[2024-09-21] MEDS: Ondansetron 4 MG/2 ML Vial IV (23:46)
[2024-09-22] VITALS (11 sets, daily range): BP systolic 83–140; BP diastolic 38–91; PULSE 64–82; RESP 14–18; TEMP 36.1–36.8; O2SAT 93–100; BMI 33.9
[2024-09-22 00:47] LABS: Hematocrit 28.6 % (37-47); Hemoglobin 9.4 g/dL (12.0-15.0); Mean Corp Hgb Conc 32.9 g/dL (32-36); Mean Corpuscular Volume 91.4 fL (81-99); Mean Platelet Vol. 8.9 fl (6.2-12.0); Platelet Count 135 K/mm3 (150-450); RBC Distribution Width CV 14.6 % (11.6-14.6); RBC Distribution Width SD 49.1 fl (35.1-43.9); Red Blood Count 3.13 M/mm3 (4.2-5.4); White Blood Count 2.9 K/mm3 (4.4-11.0)
[2024-09-22] MEDS: 0.9% Normal Saline (1000mL) 1,000 ML 125 ML IV (02:05)
[2024-09-22 05:17] LABS: Absolute Lymphocyte Count 1.51 X10^3/uL (0.83-4.51); Absolute Neutrophil Count 1.6 X10^3/uL (2.0-7.7); Basophil# 0.01 X10^3/uL; Basophil% 0.3 % (0-1); Eosinophil# 0.02 X10^3/uL; Eosinophils% 0.6 % (0-5); Hematocrit 29.5 % (37-47); Hemoglobin 9.6 g/dL (12.0-15.0); Lymphocyte # 1.51 X10^3/ul (0.83-4.51); Mean Corp Hgb Conc 32.5 g/dL (32-36); Mean Corpuscular Hgb 29.5 pg (27.0-32.0); Mean Corpuscular Volume 90.8 fL (81-99); Mean Platelet Vol. 9.2 fl (6.2-12.0); Monocyte# 0.26 X10^3/uL; Monocyte% 7.6 % (0-10); NRBC Flagged by Analyzer 0 % (0-5); Neutrophil # 1.59 X10^3/uL (2.7-7.7); Neutrophil % 46.3 % (47-70); Platelet Count 150 K/mm3 (150-450); RBC Distribution Width CV 14.6 % (11.6-14.6); RBC Distribution Width SD 48.7 fl (35.1-43.9); Red Blood Count 3.25 M/mm3 (4.2-5.4); White Blood Count 3.4 K/mm3 (4.4-11.0)
[2024-09-22 05:28] LABS: International Normalized Ratio 2.9; Prothrombin Time (Protime)PT. 30.9 SECONDS (11.7-14.9)
[2024-09-22 05:45] LABS: Anion Gap 13 (5-15); BUN 10 mg/dL (4-19); BUN/Creat Ratio 15.7 RATIO (10-20); Calcium,Total 8.2 mg/dL (7.6-11.0); Chloride 109 mmol/L (98-108); Creatinine, Serum 0.65 mg/dL (0.70-1.20); EST Glomerular Filtration Rate 87 (>60); Estimated Creatinine Clearance 55.67 ml/min (50-250); Glucose 144 mg/dL (70-99); Potassium 3.5 mmol/L (3.3-5.1); Sodium Level 140 mmol/L (133-145)
--- NOTE | 2024-09-22 05:55 | EKG12_ITS ---
Test Reason : PRE-OP Blood Pressure : */* mmHG Vent. Rate : 65 BPM Atrial Rate : 65 BPM P-R Int : 164 ms QRS Dur : 76 ms QT Int : 434 ms P-R-T Axes : 70 -9 -17 degrees QTcB Int : 451 ms Sinus rhythm with Premature supraventricular complexes Minimal voltage criteria for LVH, may be normal variant ( R in aVL ) Nonspecific T wave abnormality Abnormal ECG When compared with ECG of 17-Jun-2014 21:17, Premature supraventricular complexes are now Present Nonspecific T wave abnormality, worse in Lateral leads Confirmed by KEVIN ORTEGA, LALY ([id number]), graphics editor CRUZITO GAGE ([id number]) on 09/22/2024 1:21:01 PM Referred By: Elena Jc Confirmed By: LALY BROWN MD
--- NOTE | 2024-09-22 05:55 | EKG12_ITS ---
Test Reason : PRE-OP Blood Pressure : */* mmHG Vent. Rate : 65 BPM Atrial Rate : 65 BPM P-R Int : 164 ms QRS Dur : 76 ms QT Int : 434 ms P-R-T Axes : 70 -9 -17 degrees QTcB Int : 451 ms Sinus rhythm with Premature supraventricular complexes Minimal voltage criteria for LVH, may be normal variant ( R in aVL ) Nonspecific T wave abnormality Abnormal ECG When compared with ECG of 17-Jun-2014 21:17, Premature supraventricular complexes are now Present Nonspecific T wave abnormality, worse in Lateral leads Confirmed by KEVIN ORTEGA, LALY ([id number]), food editor CRUZITO GAGE ([id number]) on 09/22/2024 1:21:01 PM Referred By: Elena Jc Confirmed By: LALY BROWN MD
[2024-09-22 09:10] LABS: Hemoglobin 8.5 g/dL (12.0-15.0); Mean Corp Hgb Conc 32.7 g/dL (32-36); Mean Corpuscular Hgb 29.4 pg (27.0-32.0); Mean Platelet Vol. 9.1 fl (6.2-12.0); Platelet Count 129 K/mm3 (150-450); RBC Distribution Width CV 14.6 % (11.6-14.6); RBC Distribution Width SD 47.9 fl (35.1-43.9); Red Blood Count 2.89 M/mm3 (4.2-5.4); White Blood Count 2.6 K/mm3 (4.4-11.0)
--- NOTE | 2024-09-22 12:12 | PCM.PN.HOSP ---
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 Patient was mildly fatigued appearing but otherwise laying back comfortably in bed and in no acute distress. She had been given an enema in preparation for colonoscopy later this afternoon and was having loose brown bowel movements thus far. No other acute concerns currently. Objective Data Objective Data Vital Signs: Vital Signs Temp Pulse Resp BP Pulse Ox O2 Del Method 97.9 F 75 14 105/47 L 98 Room Air 09/22/24 11:07 09/22/24 11:07 09/22/24 11:07 09/22/24 11:07 09/22/24 11:07 09/22/24 11:07 Oxygen Delivery Method Room Air Weight: 86.863 kg Body Mass Index (BMI) 33.9 Intake & Output: Intake and Output for Last 24 Hours 09/20/24 09/21/24 09/22/24 23:59 23:59 23:59 Intake Total 1240 / 1240 1000 / 1000 Balance 1240 / 1240 1000 / 1000 Lab / Micro Data 09/22/24 08:50 09/22/24 04:56 Labs: Laboratory Results - last 24 hr 09/21/24 11:55: WBC 2.8 L, RBC 3.94 L, Hgb 11.8 L, Hct 35.7 L, MCV 90.6, MCH 29.9, MCHC 33.1, RDW Std Deviation 48.5 H, RDW Coeff of Nabila 14.5, Plt Count 158, MPV 8.9, Immature Gran % (Auto) 1.500 H, Neut % (Auto) 49.0, Lymph % (Auto) 40.0, [place] % (Auto) 8.4, Eos % (Auto) 0.7, Baso % (Auto) 0.4, Absolute Neuts (auto) 1.4 L, Absolute Lymphs (auto) 1.10, Nucleated RBC % 0, PT 29.9 H, INR 2.8, APTT 40.7 H, Sodium 141, Potassium 3.8, Chloride 107, Carbon Dioxide 22.1, Anion Gap 12, BUN 18, Creatinine 0.75, Estim Creat Clear Calc 57.54, Est GFR (MDRD) Non-Af 79, BUN/Creatinine Ratio 23.9 H, Glucose 123 H, Calcium 9.1 09/21/24 12:40: Blood Type A POSITIVE, Antibody Screen NEGATIVE, Crossmatch See Detail 09/21/24 20:30: WBC 3.2 L, RBC 3.63 L, Hgb 10.8 L, Hct 33.6 L, MCV 92.6, MCH 29.8, MCHC 32.1, RDW Std Deviation 49.7 H, RDW Coeff of Nabila 14.6, Plt Count 138 L, MPV 8.8, PT 29.7 H, INR 2.8 09/22/24 00:40: WBC 2.9 L, RBC 3.13 L, Hgb 9.4 L, Hct 28.6 L, MCV 91.4, MCH 30.0, MCHC 32.9, RDW Std Deviation 49.1 H, RDW Coeff of Nabila 14.6, Plt Count 135 L, MPV 8.9 09/22/24 04:56: WBC 3.4 L, RBC 3.25 L, Hgb 9.6 L, Hct 29.5 L, MCV 90.8, MCH 29.5, MCHC 32.5, RDW Std Deviation 48.7 H, RDW Coeff of Nabila 14.6, Plt Count 150, MPV 9.2, Immature Gran % (Auto) 1.200 H, Neut % (Auto) 46.3 L, Lymph % (Auto) 44.0 H, [place] % (Auto) 7.6, Eos % (Auto) 0.6, Baso % (Auto) 0.3, Absolute Neuts (auto) 1.6 L, Absolute Lymphs (auto) 1.51, Nucleated RBC % 0, PT 30.9 H, INR 2.9, Sodium 140, Potassium 3.5, Chloride 109 H, Carbon Dioxide 19.0 L, Anion Gap 13, BUN 10, Creatinine 0.65 L, Estim Creat Clear Calc 55.67, Est GFR (MDRD) Non-Af 87, BUN/Creatinine Ratio 15.7, Glucose 144 H, Calcium 8.2 09/22/24 08:50: WBC 2.6 L, RBC 2.89 L, Hgb 8.5 L, Hct 26.0 L, MCV 90.0, MCH 29.4, MCHC 32.7, RDW Std Deviation 47.9 H, RDW Coeff of Nabila 14.6, Plt Count 129 L, MPV 9.1 Radiography Diagnostic Testing: Radiology Impression Abdomen/Pelvis CTA 09/21/24 12:23 IMPRESSION: There is a 3.0 cm uncomplicated fat containing right inguinal hernia. There is diverticulosis throughout the colon with no definite acute diverticulitis. Atherosclerotic plaque is noted with no evidence of significant stenosis or occlusion in the abdomen or pelvis. Reading Location: [facility] Physical Exam Const alert, oriented x3 and no apparent distress Constitutional Narrative: Elderly female, class I obesity, mildly fatigued appearing but otherwise laying back comfortably in bed, conversing normally, in no acute distress. General Appearance: cooperative and comfortable HEENT normocephalic, head/scalp atraumatic, hearing grossly normal bilaterally, nasal mucous membranes and turbinates normal and moist oral mucous membranes Eyes PERRL, EOMs intact bilaterally and conjunctivae normal Neck full ROM Chest inspection of chest normal Resp normal respiratory effort, normal air movement, no use of accessory muscles and clear to auscultation bilaterally Cardio regular rate, regular rhythm, no murmurs and peripheral pulses 2+ throughout GI normal to inspection, nondistended, normoactive bowel sounds, soft to palpation, non-tender and non-distended Back/Spine normal ROM Extremity normal to inspection, full ROM and no pedal edema Skin no rashes or lesions noted Psych mental status grossly normal Assessment & Plan Assessment/Plan (1) Acute on chronic blood loss anemia: (2) Rectal bleeding: PLAN: Plan Patient is an 84-year-old female who presented to [facility] ED on 09/21/24 with bright red blood per rectum. 1. Acute on chronic blood loss anemia secondary to acute lower GI bleed ? GI following. Presented with bright red blood per rectum. Hemoglobin 11.8 on admit, baseline around 13. Downtrended during hospitalization, most recent hemoglobin 8.5 on morning of 09/22. Colonoscopy on 09/22 showed one 8 mm polyp that was resected, localized moderate inflammation in the rectosigmoid, sigmoid and descending colon secondary to ischemic colitis that was biopsied. Okay to continue Coumadin as below. Follow-up CBC tonight and tomorrow morning. Monitor patient clinical status closely. Appreciate further GI recommendations. 2. 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 INR 2.8 on admit. Was discussed with GI on admit and decision was made to continue Coumadin due to high risk of clotting. Will continue home Coumadin and monitor daily INR. 3. Class I obesity ? BMI 33 on admit. Complicates hospital course, care and prognosis. DVT prophylaxis: Not indicated, on Coumadin CODE STATUS: Full code, verified Expected disposition: Home, TBD Total clinical time spent by myself addressing the patient's medical issues, reviewing all the data, and collaborating with patient's care team: 35 minutes. Charges/Coding Visit Charges Inpatient E&M: 19360 Subs Hosp L2
--- NOTE | 2024-09-22 14:30 | NURSING ---
Report called to Paola in [facility]
--- NOTE | 2024-09-22 14:30 | NURSING ---
Report called to Paola in [facility]
--- NOTE | 2024-09-22 14:45 | PCM.PRE.AN2 ---
ASA Classification* ASA Classification ASA Classification: 3 (H/o DVT, H/o PE, on warfarin, having possible active GI bleed. Please do not give versed.) Assessment & Plan Anesthesia* Anesthesia Assessment Anesthesia Assessment: Discussed sedation and/or anesthesia options, risks, benefits, and alternatives with patient/parents/legal guardian/POA. Questions invited. The patient/parents/legal guardian/POA seems to understand and agrees to proceed with anesthesia plan. Reviewed the physical assessment, medical history, allergy history and patient home medications list prior to surgery/procedure/anesthetic and documented any changes. Performed airway and anesthesia risk assessments. DANISH YAP, is a 84-year-old female with history of DVT/PE with history of factor V Leiden on Coumadin presented to [facility] ED 09/21/2024 due to bright red blood per rectum with clots. 2 days ago she noted blood in stool and had an additional 4 episodes yesterday with 1 this morning, did have 1 more in the ED as well. Patient with white blood cell count 2.8 and hemoglobin 11.8, INR 2.8 and BMP overall benign aside from glucose of 123 slightly elevated. CTA of abdomen obtained which showed an uncomplicated fat-containing right inguinal hernia, diverticulosis without diverticulitis and atherosclerotic plaque with no evidence of significant stenosis or occlusion. Given patient's high risk and continued bleeding hospitalist contacted for admission. Anesthesia Type Anesthesia Type: MAC Anesthesia Focused Assessment* Temperature: 97.9 F Pulse Rate: 75 Blood Pressure: 105/47 Respiratory Rate: 14 Pulse Ox: 98 Oxygen Delivery Method: Room Air Airway Assessment Mouth opens: >3 cm Mallampati Score: II Teeth Condition: Dentures, Lower and Upper Neck Range of motion (ROM): Full ROM Labs Anesthesia Preop lab: CBC WBC 2.6 K/mm3 (4.4-11.0) L 09/22/24 08:50 09/22/24 RBC 2.89 M/mm3 (4.2-5.4) L 09/22/24 08:50 09/22/24 Hgb 8.5 g/dL (12.0-15.0) L 09/22/24 08:50 09/22/24 Hct 26.0 % (37-47) L 09/22/24 08:50 09/22/24 Plt Count 129 K/mm3 (150-450) L 09/22/24 08:50 09/22/24 CHEMISTRY Potassium 3.5 mmol/L (3.3-5.1) 09/22/24 04:56 09/22/24 Sodium 140 mmol/L (133-145) 09/22/24 04:56 09/22/24 Magnesium 1.5 mg/dL (1.8-2.4) L 06/20/14 05:06 06/20/14 BUN 10 mg/dL (4-19) 09/22/24 04:56 09/22/24 Creatinine 0.65 mg/dL (0.70-1.20) L 09/22/24 04:56 09/22/24 Glucose 144 mg/dL (70-99) H 09/22/24 04:56 09/22/24 COAG PT 30.9 SECONDS (11.7-14.9) H 09/22/24 04:56 09/22/24 Pre-Assessment Diagnosis/Proposed Procedure Planned Operative Procedure(s): CSCOPE Anesthesia History Anesthesia History - industrial custodian: Anesthesia History - industrial custodian Hx Hospitalization Any Problems With Anesthesia No 09/21/24 21:10 Cholinesterase deficiency No 09/21/24 21:10 You/Your Family Experience No 09/21/24 21:10 fever (hyperthermia) with Relationship Recent Exposure to Contagious No 09/21/24 21:10 Disease Does patient have nerve No 09/21/24 21:10 stimulator Patient instructed to have No 09/21/24 21:10 device shut off --Does patient have Pacemaker No 09/22/24 14:30 or ICD? When Was Last Pacemaker Check QUESTION #4 FULL TEXT: You/Your Family Experience fever (hyperthermia) with Anesthesia Last Oral Intake Last Oral intake: Last Oral Intake NPO since 00:00 09/22/24 14:30 Meds taken in AM with sips of No 09/22/24 14:30 water? Meds patient instructed to take am of surgery PONV PONV - industrial custodian: PONV - industrial custodian Female HX of Motion Sickness HX of N/V After Surgery Non-Smoker Duration of Surgery greater than 60 minutes Number of Risk Factors PONV Score Height & Weight Height & Weight: Anesthesia: Height & Weight Height 5 ft 3 in 09/22/24 14:30 Weight: 86.863 kg 09/22/24 14:30 Body Mass Index (BMI) 33.9 09/22/24 14:30 Respiratory Assessment Respiratory Assessment - industrial custodian: Respiratory Tract Infection Hx - industrial custodian Hx Respiratory Tract Infection No 09/21/24 21:10 STOP Sleep Apnea STOP Sleep Apnea - industrial custodian: STOP Sleep Apnea - industrial custodian Hx Hypertension No 09/21/24 17:47 Hx Sleep Apnea No 09/21/24 17:47 CPAP No 09/21/24 17:47 BIPAP No 09/21/24 17:47 Do you snore loudly (louder No 09/21/24 17:47 than talking or can be heard Do you often feel tired/ No 09/21/24 17:47 fatigued/ sleepy during daytime? Has anyone observed you stop No 09/21/24 17:47 breathing during sleep? STOP Results Negative 09/21/24 17:47 QUESTION #5 FULL TEXT : Do you snore loudly (louder than talking or can be heard through closed doors)? 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 Specify any problems Hx of Preganancy in last 3 No 09/21/24 17:47 Months Nurse Filling Out Transfusion HSMUCKER 09/21/24 17:47 & Questions: Date: 09/21/24 09/21/24 17:47 Time: 17:50 09/21/24 17:47 Patient unable to answer at this time (ie. confused, unrespo /Reproduction History /Reproductive History - industrial custodian: /Reproductive Hx- industrial custodian Hx Now No 09/21/24 21:10 Gestational Age (in weeks): EDC: Hx Hx Para Hx Section SAB No 09/21/24 21:10 Active Medications Active Medications: Current Medications Generic Name Dose Route Start Last Admin Trade Name Freq PRN Reason Stop Dose Admin Acetaminophen 650 mg 09/21/24 17:18 Acetaminophen 325 Mg Tablet PO Q6H PRN PRN Pain 1-10 Or Fever >100.7 Albuterol Sulfate 2.5 mg 09/21/24 17:18 Albuterol 2.5 Mg/3 Ml Vial.Neb. INHALATION Q2H PRN PRN SOB &/OR WHEEZING Sodium Chloride 250 mls @ 15 mls/hr 09/21/24 17:20 IV .[id number] PRN Saline Flush Sodium Chloride 250 mls @ 15 mls/hr 09/21/24 17:20 IV .[id number] PRN Additional IVPB Infusion Melatonin 10 mg 09/21/24 17:18 Melatonin 10 Mg Tablet PO QHS PRN PRN INSOMNIA Ondansetron HCl 4 mg 09/21/24 17:18 09/21/24 23:46 Ondansetron 4 Mg/2 Ml Vial IV 4 mg Q8H PRN PRN Administration NAUSEA/VOMITING Senna/Docusate Sodium 2 tablet 09/21/24 17:18 Senna/Docusate Sodium 1 Tablet PO BID PRN PRN Constipation Sodium Chloride 10 - 40 ml 09/21/24 17:20 09/21/24 17:35 0.9% Saline Lock 10 Ml Syringe IV 10 ml UD PRN Administration SALINE FLUSH PFSH Medical History Hx of pancreatitis Murmur, cardiac Fatty liver Bakers cyst Vitamin D deficiency Abnormal echocardiogram History of DVT of lower extremity History of pulmonary embolus (PE) Obesity (BMI 30-39.9) Back pain GERD (gastroesophageal reflux disease) Home Medications ?Medication ?Instructions ?Recorded ?Last Taken ?Type ascorbic acid (vitamin C) 500 mg 500 mg PO DAILY supplement 11/14/22 Unknown History tablet cinnamon bark 500 mg capsule 500 mg PO 4X/DAY supplement 11/14/22 Unknown History (Cinnamon) coenzyme Q10 10 mg capsule 10 mg PO DAILY supplement 11/14/22 Unknown History ergocalciferol (vitamin D2) 1,250 1,250 mcg PO QWEEK supplement 11/14/22 Unknown History mcg (50,000 unit) capsule [id number] 8 mg-folic 400 1 tab PO DAILY supplement 11/14/22 Unknown History mcg-K 50 mcg-lutein 300 mcg tablet (Centrum Silver Women) turmeric 400 mg capsule 400 mg PO DAILY supplement 11/14/22 Unknown History vitamin B complex 1 tab PO DAILY supplement 11/14/22 Unknown History zinc gluconate 100 mg tablet 100 mg PO DAILY supplement 11/14/22 Unknown History warfarin 6 mg tablet (Jantoven) 6 mg PO DAILY@1700 blood thinner 12/06/22 Unknown History Allergy/AdvReac Type Severity Reaction Status Date / Time codeine Allergy Unknown Verified 09/21/24 11:38 Family History Mother Heart disease Father Heart disease Sister Heart disease Surgical History History of hysterectomy History of cholecystectomy Social History Smoking Status: Never smoker alcohol intake: never caffeine: Yes Type: coffee and tea Review of Systems (Anesthesia) ROS Narrative System reviewed and no additional complaints, except as documented.
--- NOTE | 2024-09-22 14:45 | PCM.PRE.AN2 ---
ASA Classification* ASA Classification ASA Classification: 3 (H/o DVT, H/o PE, on warfarin, having possible active GI bleed. Please do not give versed.) Assessment & Plan Anesthesia* Anesthesia Assessment Anesthesia Assessment: Discussed sedation and/or anesthesia options, risks, benefits, and alternatives with patient/parents/legal guardian/POA. Questions invited. The patient/parents/legal guardian/POA seems to understand and agrees to proceed with anesthesia plan. Reviewed the physical assessment, medical history, allergy history and patient home medications list prior to surgery/procedure/anesthetic and documented any changes. Performed airway and anesthesia risk assessments. DANISH YAP, is a 84-year-old female with history of DVT/PE with history of factor V Leiden on Coumadin presented to [facility] ED 09/21/2024 due to bright red blood per rectum with clots. 2 days ago she noted blood in stool and had an additional 4 episodes yesterday with 1 this morning, did have 1 more in the ED as well. Patient with white blood cell count 2.8 and hemoglobin 11.8, INR 2.8 and BMP overall benign aside from glucose of 123 slightly elevated. CTA of abdomen obtained which showed an uncomplicated fat-containing right inguinal hernia, diverticulosis without diverticulitis and atherosclerotic plaque with no evidence of significant stenosis or occlusion. Given patient's high risk and continued bleeding hospitalist contacted for admission. Anesthesia Type Anesthesia Type: MAC Anesthesia Focused Assessment* Temperature: 97.9 F Pulse Rate: 75 Blood Pressure: 105/47 Respiratory Rate: 14 Pulse Ox: 98 Oxygen Delivery Method: Room Air Airway Assessment Mouth opens: >3 cm Mallampati Score: II Teeth Condition: Dentures, Lower and Upper Neck Range of motion (ROM): Full ROM Labs Anesthesia Preop lab: CBC WBC 2.6 K/mm3 (4.4-11.0) L 09/22/24 08:50 09/22/24 RBC 2.89 M/mm3 (4.2-5.4) L 09/22/24 08:50 09/22/24 Hgb 8.5 g/dL (12.0-15.0) L 09/22/24 08:50 09/22/24 Hct 26.0 % (37-47) L 09/22/24 08:50 09/22/24 Plt Count 129 K/mm3 (150-450) L 09/22/24 08:50 09/22/24 CHEMISTRY Potassium 3.5 mmol/L (3.3-5.1) 09/22/24 04:56 09/22/24 Sodium 140 mmol/L (133-145) 09/22/24 04:56 09/22/24 Magnesium 1.5 mg/dL (1.8-2.4) L 06/20/14 05:06 06/20/14 BUN 10 mg/dL (4-19) 09/22/24 04:56 09/22/24 Creatinine 0.65 mg/dL (0.70-1.20) L 09/22/24 04:56 09/22/24 Glucose 144 mg/dL (70-99) H 09/22/24 04:56 09/22/24 COAG PT 30.9 SECONDS (11.7-14.9) H 09/22/24 04:56 09/22/24 Pre-Assessment Diagnosis/Proposed Procedure Planned Operative Procedure(s): CSCOPE Anesthesia History Anesthesia History - staff forester: Anesthesia History - staff forester Hx Hospitalization Any Problems With Anesthesia No 09/21/24 21:10 Cholinesterase deficiency No 09/21/24 21:10 You/Your Family Experience No 09/21/24 21:10 fever (hyperthermia) with Relationship Recent Exposure to Contagious No 09/21/24 21:10 Disease Does patient have nerve No 09/21/24 21:10 stimulator Patient instructed to have No 09/21/24 21:10 device shut off --Does patient have Pacemaker No 09/22/24 14:30 or ICD? When Was Last Pacemaker Check QUESTION #4 FULL TEXT: You/Your Family Experience fever (hyperthermia) with Anesthesia Last Oral Intake Last Oral intake: Last Oral Intake NPO since 00:00 09/22/24 14:30 Meds taken in AM with sips of No 09/22/24 14:30 water? Meds patient instructed to take am of surgery PONV PONV - staff forester: PONV - staff forester Female HX of Motion Sickness HX of N/V After Surgery Non-Smoker Duration of Surgery greater than 60 minutes Number of Risk Factors PONV Score Height & Weight Height & Weight: Anesthesia: Height & Weight Height 5 ft 3 in 09/22/24 14:30 Weight: 86.863 kg 09/22/24 14:30 Body Mass Index (BMI) 33.9 09/22/24 14:30 Respiratory Assessment Respiratory Assessment - staff forester: Respiratory Tract Infection Hx - staff forester Hx Respiratory Tract Infection No 09/21/24 21:10 STOP Sleep Apnea STOP Sleep Apnea - staff forester: STOP Sleep Apnea - staff forester Hx Hypertension No 09/21/24 17:47 Hx Sleep Apnea No 09/21/24 17:47 CPAP No 09/21/24 17:47 BIPAP No 09/21/24 17:47 Do you snore loudly (louder No 09/21/24 17:47 than talking or can be heard Do you often feel tired/ No 09/21/24 17:47 fatigued/ sleepy during daytime? Has anyone observed you stop No 09/21/24 17:47 breathing during sleep? STOP Results Negative 09/21/24 17:47 QUESTION #5 FULL TEXT : Do you snore loudly (louder than talking or can be heard through closed doors)? 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 Specify any problems Hx of Preganancy in last 3 No 09/21/24 17:47 Months Nurse Filling Out Transfusion HSMUCKER 09/21/24 17:47 & Questions: Date: 09/21/24 09/21/24 17:47 Time: 17:50 09/21/24 17:47 Patient unable to answer at this time (ie. confused, unrespo /Reproduction History /Reproductive History - staff forester: /Reproductive Hx- staff forester Hx Now No 09/21/24 21:10 Gestational Age (in weeks): EDC: Hx Hx Para Hx Section SAB No 09/21/24 21:10 Active Medications Active Medications: Current Medications Generic Name Dose Route Start Last Admin Trade Name Freq PRN Reason Stop Dose Admin Acetaminophen 650 mg 09/21/24 17:18 Acetaminophen 325 Mg Tablet PO Q6H PRN PRN Pain 1-10 Or Fever >100.7 Albuterol Sulfate 2.5 mg 09/21/24 17:18 Albuterol 2.5 Mg/3 Ml Vial.Neb. INHALATION Q2H PRN PRN SOB &/OR WHEEZING Sodium Chloride 250 mls @ 15 mls/hr 09/21/24 17:20 IV .[id number] PRN Saline Flush Sodium Chloride 250 mls @ 15 mls/hr 09/21/24 17:20 IV .[id number] PRN Additional IVPB Infusion Melatonin 10 mg 09/21/24 17:18 Melatonin 10 Mg Tablet PO QHS PRN PRN INSOMNIA Ondansetron HCl 4 mg 09/21/24 17:18 09/21/24 23:46 Ondansetron 4 Mg/2 Ml Vial IV 4 mg Q8H PRN PRN Administration NAUSEA/VOMITING Senna/Docusate Sodium 2 tablet 09/21/24 17:18 Senna/Docusate Sodium 1 Tablet PO BID PRN PRN Constipation Sodium Chloride 10 - 40 ml 09/21/24 17:20 09/21/24 17:35 0.9% Saline Lock 10 Ml Syringe IV 10 ml UD PRN Administration SALINE FLUSH PFSH Medical History Hx of pancreatitis Murmur, cardiac Fatty liver Bakers cyst Vitamin D deficiency Abnormal echocardiogram History of DVT of lower extremity History of pulmonary embolus (PE) Obesity (BMI 30-39.9) Back pain GERD (gastroesophageal reflux disease) Home Medications ?Medication ?Instructions ?Recorded ?Last Taken ?Type ascorbic acid (vitamin C) 500 mg 500 mg PO DAILY supplement 11/14/22 Unknown History tablet cinnamon bark 500 mg capsule 500 mg PO 4X/DAY supplement 11/14/22 Unknown History (Cinnamon) coenzyme Q10 10 mg capsule 10 mg PO DAILY supplement 11/14/22 Unknown History ergocalciferol (vitamin D2) 1,250 1,250 mcg PO QWEEK supplement 11/14/22 Unknown History mcg (50,000 unit) capsule kngpqkif-hjsv-dlce 8 mg-folic 400 1 tab PO DAILY supplement 11/14/22 Unknown History mcg-K 50 mcg-lutein 300 mcg tablet (Centrum Silver Women) turmeric 400 mg capsule 400 mg PO DAILY supplement 11/14/22 Unknown History vitamin B complex 1 tab PO DAILY supplement 11/14/22 Unknown History zinc gluconate 100 mg tablet 100 mg PO DAILY supplement 11/14/22 Unknown History warfarin 6 mg tablet (Jantoven) 6 mg PO DAILY@1700 blood thinner 12/06/22 Unknown History Allergy/AdvReac Type Severity Reaction Status Date / Time codeine Allergy Unknown Verified 09/21/24 11:38 Family History Mother Heart disease Father Heart disease Sister Heart disease Surgical History History of hysterectomy History of cholecystectomy Social History Smoking Status: Never smoker alcohol intake: never caffeine: Yes Type: coffee and tea Review of Systems (Anesthesia) ROS Narrative System reviewed and no additional complaints, except as documented.
--- NOTE | 2024-09-22 15:15 | COLBX_PTH ---
PATIENT: DANISH YAP LOC: [facility] U#:[id number] AGE/SX: 84/F ROOM: [facility] RE09/21/[address]: Dr. Eh Lee MD : 1940 BED: 1 DIS: 09/23/2024 SPEC #: [id number] RECD: 09/23/24 10:17 STATUS: LYNN MCMILLAN #: [id number] MONA: 09/22/24 15:[address]: Kavin Ruelas DEPT: SURGICAL PATHOLOGY RECD BY: Gideon Early ENTERED: 09/23/24 13:18 SP TYPE: COLON BX OTHR DR: DO Dr. Stacia Anne, DO MD Dr. Elena Oliveros MD Tissues: A - Cecum, NOS B - Sigmoid colon biopsy Procedures: Surgery Specimen Level IV HEADER OPERATION: Colonoscopy, polypectomy, biopsy PRE-OP DIAGNOSIS: Chronic anticoagulation, history of pulmonary embolism, rectal bleeding TISSUE SUBMITTED: A- Cecal polyp, B- Sigmoid colitis biopsy MICROSCOPIC DIAGNOSIS A. Cecum, colon, polyp, biopsy: - Tubular adenoma. B. Sigmoid, colon, biopsy: - Acute colitis without significant crypt distortion - see note. - No granulomas or dysplasia seen. Note: The histologic differential diagnosis includes bowel prep artifact, ischemia, infection, and medication-related injury. Recommend correlation with clinical and endoscopic findings. MICROSCOPIC DESCRIPTION Slides are reviewed. GROSS DESCRIPTION A. Received in fixative is one container labeled with the patient's name and designated Cecal polyp. The specimen consists of multiple irregular fragments of light strange soft tissue that in aggregate measure 1.2 x 0.6 x 0.1 cm. The specimen is totally submitted in one cassette. B. Received in fixative is one container labeled with the patient's name and designated Sigmoid colitis biopsy. The specimen consists of one irregular fragment of light strange soft tissue that measures 0.4 cm. The specimen is totally submitted in one cassette. WIL/ 09/23/2024 CPT:88082y4
--- NOTE | 2024-09-22 15:15 | COLBX_PTH ---
PATIENT: DANISH YAP LOC: [facility] U#:[id number] AGE/SX: 84/F ROOM: [facility] RE09/21/[address]: Dr. Eh Lee MD : 1940 BED: 1 DIS: 09/23/2024 SPEC #: [id number] RECD: 09/23/24 10:17 STATUS: LYNN MCMILLAN #: [id number] MONA: 09/22/24 15:[address]: Kavin Ruelas DEPT: SURGICAL PATHOLOGY RECD BY: Gideon Early ENTERED: 09/23/24 13:18 SP TYPE: COLON BX OTHR DR: DO Dr. Stacia Anne, DO MD Dr. Elena Oliveors MD Tissues: A - Cecum, NOS B - Sigmoid colon biopsy Procedures: Surgery Specimen Level IV HEADER OPERATION: Colonoscopy, polypectomy, biopsy PRE-OP DIAGNOSIS: Chronic anticoagulation, history of pulmonary embolism, rectal bleeding TISSUE SUBMITTED: A- Cecal polyp, B- Sigmoid colitis biopsy MICROSCOPIC DIAGNOSIS A. Cecum, colon, polyp, biopsy: - Tubular adenoma. B. Sigmoid, colon, biopsy: - Acute colitis without significant crypt distortion - see note. - No granulomas or dysplasia seen. Note: The histologic differential diagnosis includes bowel prep artifact, ischemia, infection, and medication-related injury. Recommend correlation with clinical and endoscopic findings. MICROSCOPIC DESCRIPTION Slides are reviewed. GROSS DESCRIPTION A. Received in fixative is one container labeled with the patient's name and designated Cecal polyp. The specimen consists of multiple irregular fragments of light strange soft tissue that in aggregate measure 1.2 x 0.6 x 0.1 cm. The specimen is totally submitted in one cassette. B. Received in fixative is one container labeled with the patient's name and designated Sigmoid colitis biopsy. The specimen consists of one irregular fragment of light strange soft tissue that measures 0.4 cm. The specimen is totally submitted in one cassette. WIL/ 09/23/2024 CPT:56693i2
--- NOTE | 2024-09-22 15:33 | OP.CCLET_ITS ---
09/22/2024 Stacia Mosqueda [address] [place] [address] Re : Colonoscopy procedure for Nick Maravilla Dear Dr. Mosqueda This procedure was performed on Sunday, September 22, 2024. My impressions and recommendations are as follows: Impressions : - One 8 mm polyp in the cecum, removed with a hot snare. Resected and retrieved. - Diverticulosis in the entire examined colon. - Localized moderate inflammation was found in the recto-sigmoid colon, in the sigmoid colon and in the descending colon secondary to ischemic colitis. Biopsied. Recommendations : - Return patient to hospital [facility] for ongoing care. - Resume previous diet. - Continue present medications. - Await pathology results. - Repeat colonoscopy in 4 months to check healing. My findings are described in the full procedure note, which is enclosed. If I can be of further assistance, please feel free to contact me at . Sincerely, Kavin Ruelas DO 09/22/2024 3:33:19 PM This report has been signed electronically.
--- NOTE | 2024-09-22 15:33 | OP.COLON_ITS ---
Patient Name: Nick Maravilla Procedure Date: 09/22/2024 2:48 PM Date of : 1940 Age: 84 Procedure: Colonoscopy Indications: Hematochezia Providers: Kavin Ruelas DO Referring MD: Elena Jc Md Medicines: Monitored Anesthesia Care Patient Profile: This is an 84 year old female. Refer to note in patient chart for documentation of history and physical. Last Colonoscopy: date unknown. Unable to locate last colonoscopy report. Complications: No immediate complications. Procedure: Pre-Anesthesia Assessment: - Prior to the procedure, a History and Physical was performed, and patient medications and allergies were reviewed. The patient is competent. The risks and benefits of the procedure and the sedation options and risks were discussed with the patient. All questions were answered and informed consent was obtained. Patient identification and proposed procedure were verified by the physician in the pre-procedure area. Mental Status Examination: alert and oriented. Airway Examination: normal oropharyngeal airway and neck mobility. Respiratory Examination: clear to auscultation. CV Examination: normal. Prophylactic Antibiotics: The patient does not require prophylactic antibiotics. Prior Anticoagulants: The patient has taken no anticoagulant or antiplatelet agents except for NSAID medication. ASA Grade Assessment: II - A patient with mild systemic disease. After reviewing the risks and benefits, the patient was deemed in satisfactory condition to undergo the procedure. The anesthesia plan was to use monitored anesthesia care (MAC). Immediately prior to administration of medications, the patient was re-assessed for adequacy to receive sedatives. The heart rate, respiratory rate, oxygen saturations, blood pressure, adequacy of pulmonary ventilation, and response to care were monitored throughout the procedure. The physical status of the patient was re-assessed after the procedure. After I obtained informed consent, the scope was passed under direct vision. Throughout the procedure, the patient's blood pressure, pulse, and oxygen saturations were monitored continuously. The colonoscope was introduced through the anus and advanced to the terminal ileum. The colonoscopy was performed without difficulty. The patient tolerated the procedure well. The quality of the bowel preparation was adequate. The ileocecal valve, appendiceal orifice, and rectum were photographed. Scope In: 3:06:52 PM Scope Withdrawal Time 0 hours 11 minutes 51 seconds Scope Out: 3:25:29 PM Total Procedure Duration Time 0 hours 18 minutes 37 seconds Findings: The perianal and digital rectal examinations were normal. An 8 mm polyp was found in the cecum. The polyp was sessile. The polyp was removed with a hot snare. Resection and retrieval were complete. Verification of patient identification for the specimen was done. Estimated blood loss was minimal. Multiple small and large-mouthed diverticula were found in the entire colon. Localized moderate inflammation characterized by congestion (edema), erosions, erythema, friability and linear erosions was found in the recto-sigmoid colon, in the sigmoid colon and in the descending colon. Biopsies were taken with a cold forceps for histology. Verification of patient identification for the specimen was done. Estimated blood loss was minimal. Impression: - One 8 mm polyp in the cecum, removed with a hot snare. Resected and retrieved. - Diverticulosis in the entire examined colon. - Localized moderate inflammation was found in the recto-sigmoid colon, in the sigmoid colon and in the descending colon secondary to ischemic colitis. Biopsied. Recommendation: - Return patient to hospital [facility] for ongoing care. - Resume previous diet. - Continue present medications. - Await pathology results. - Repeat colonoscopy in 4 months to check healing. Procedure Code(s): --- Professional --- 08285, Colonoscopy, flexible; with removal of tumor(s), polyp(s), or other lesion(s) by snare technique 50498, 59, Colonoscopy, flexible; with biopsy, single or multiple CPT copyright 2021 [employer]. All rights reserved. The codes documented in this report are preliminary and upon blood splatter analyst review may be revised to meet current compliance requirements. Kavin Ruelas DO 09/22/2024 3:33:19 PM This report has been signed electronically. Number of Addenda: 0 Note Initiated On: 09/22/2024 2:48 PM
--- NOTE | 2024-09-22 15:33 | OP.CCLET_ITS ---
09/22/2024 Stacia Mosqueda [address] [place] [address] Re : Colonoscopy procedure for Nick Maravilla Dear Dr. Mosqueda This procedure was performed on Sunday, September 22, 2024. My impressions and recommendations are as follows: Impressions : - One 8 mm polyp in the cecum, removed with a hot snare. Resected and retrieved. - Diverticulosis in the entire examined colon. - Localized moderate inflammation was found in the recto-sigmoid colon, in the sigmoid colon and in the descending colon secondary to ischemic colitis. Biopsied. Recommendations : - Return patient to hospital [facility] for ongoing care. - Resume previous diet. - Continue present medications. - Await pathology results. - Repeat colonoscopy in 4 months to check healing. My findings are described in the full procedure note, which is enclosed. If I can be of further assistance, please feel free to contact me at . Sincerely, Kavin Ruelas DO 09/22/2024 3:33:19 PM This report has been signed electronically.
--- NOTE | 2024-09-22 15:33 | OP.COLON_ITS ---
Patient Name: Nick Maravilla Procedure Date: 09/22/2024 2:48 PM Date of : 1940 Age: 84 Procedure: Colonoscopy Indications: Hematochezia Providers: Kavin Ruelas DO Referring MD: Elena Jc Md Medicines: Monitored Anesthesia Care Patient Profile: This is an 84 year old female. Refer to note in patient chart for documentation of history and physical. Last Colonoscopy: date unknown. Unable to locate last colonoscopy report. Complications: No immediate complications. Procedure: Pre-Anesthesia Assessment: - Prior to the procedure, a History and Physical was performed, and patient medications and allergies were reviewed. The patient is competent. The risks and benefits of the procedure and the sedation options and risks were discussed with the patient. All questions were answered and informed consent was obtained. Patient identification and proposed procedure were verified by the physician in the pre-procedure area. Mental Status Examination: alert and oriented. Airway Examination: normal oropharyngeal airway and neck mobility. Respiratory Examination: clear to auscultation. CV Examination: normal. Prophylactic Antibiotics: The patient does not require prophylactic antibiotics. Prior Anticoagulants: The patient has taken no anticoagulant or antiplatelet agents except for NSAID medication. ASA Grade Assessment: II - A patient with mild systemic disease. After reviewing the risks and benefits, the patient was deemed in satisfactory condition to undergo the procedure. The anesthesia plan was to use monitored anesthesia care (MAC). Immediately prior to administration of medications, the patient was re-assessed for adequacy to receive sedatives. The heart rate, respiratory rate, oxygen saturations, blood pressure, adequacy of pulmonary ventilation, and response to care were monitored throughout the procedure. The physical status of the patient was re-assessed after the procedure. After I obtained informed consent, the scope was passed under direct vision. Throughout the procedure, the patient's blood pressure, pulse, and oxygen saturations were monitored continuously. The colonoscope was introduced through the anus and advanced to the terminal ileum. The colonoscopy was performed without difficulty. The patient tolerated the procedure well. The quality of the bowel preparation was adequate. The ileocecal valve, appendiceal orifice, and rectum were photographed. Scope In: 3:06:52 PM Scope Withdrawal Time 0 hours 11 minutes 51 seconds Scope Out: 3:25:29 PM Total Procedure Duration Time 0 hours 18 minutes 37 seconds Findings: The perianal and digital rectal examinations were normal. An 8 mm polyp was found in the cecum. The polyp was sessile. The polyp was removed with a hot snare. Resection and retrieval were complete. Verification of patient identification for the specimen was done. Estimated blood loss was minimal. Multiple small and large-mouthed diverticula were found in the entire colon. Localized moderate inflammation characterized by congestion (edema), erosions, erythema, friability and linear erosions was found in the recto-sigmoid colon, in the sigmoid colon and in the descending colon. Biopsies were taken with a cold forceps for histology. Verification of patient identification for the specimen was done. Estimated blood loss was minimal. Impression: - One 8 mm polyp in the cecum, removed with a hot snare. Resected and retrieved. - Diverticulosis in the entire examined colon. - Localized moderate inflammation was found in the recto-sigmoid colon, in the sigmoid colon and in the descending colon secondary to ischemic colitis. Biopsied. Recommendation: - Return patient to hospital [facility] for ongoing care. - Resume previous diet. - Continue present medications. - Await pathology results. - Repeat colonoscopy in 4 months to check healing. Procedure Code(s): --- Professional --- 91572, Colonoscopy, flexible; with removal of tumor(s), polyp(s), or other lesion(s) by snare technique 16244, 59, Colonoscopy, flexible; with biopsy, single or multiple CPT copyright 2021 [employer]. All rights reserved. The codes documented in this report are preliminary and upon medical biller/coder review may be revised to meet current compliance requirements. Kvain Ruelas DO 09/22/2024 3:33:19 PM This report has been signed electronically. Number of Addenda: 0 Note Initiated On: 09/22/2024 2:48 PM
--- NOTE | 2024-09-22 15:33 | PCM.POST.ANE ---
Anesthesia: Postop Eval I Current Vital Signs Temperature: 97.4 F Pulse Rate: 68 Blood Pressure: 83/38 Respiratory Rate: 18 Pulse Ox: 100 Assessment Airway patent: Yes Spontaneous unlabored respirations: Yes nausea: No Vomiting: No Anesthesia Complication: No Fluid Hydration Crystalloid volume administer (ml): 400 Total IV fluid infused: 400 Progress Note Anesthesia document: Postop Eval 1 completed: Yes
--- NOTE | 2024-09-22 15:55 | CHAPLAIN ---
Type of Pastoral Visit _x__ Initial Visit ___ Follow-up Visit ___ On-call Visit ___ General Patient Visit ___ Spiritual Assessment ___ Family Conference ___ Bereavement ___ Rapid Response ___ Code Blue ___ Other (describe below) Pastoral Care Referral From ___ Patient _x__ Family ___ Nurse ___ Physician ___ Library Information Technician ___ Full Decator Operator ___ Other (describe below) Sacrament/Intervention _x__ Active listening ___ Anointing ___ Methodist ___ Bereavement ___ Communion _x__ Clotilde exploration ___ ___ Life review ___ Prayer ___ Reconciliation ___ Sacrament of Sick _x__ Supportive presence ___ Wedding ___ Other (describe below) Pastoral Comments care given to son of patient as she was in a procedure
--- NOTE | 2024-09-22 15:56 | POSTOPAN2_ITS ---
Anesthesia Postop Eval I Sum Postop Eval Completion status Anesthesia document: Postop Eval 1 completed: Yes Anesthesia Postop Eval I Summary Anesthesia Postop Eval I Summary: Anesthesia Postop Eval I: Assessment Summary Airway patent Yes 09/22/24 15:33 LIP CUTTER AND SCORER.CSIR Spontaneous unlabored Yes 09/22/24 15:33 LIP CUTTER AND SCORER.CSIR respirations Mental status nausea No 09/22/24 15:33 LIP CUTTER AND SCORER.CSIR Vomiting No 09/22/24 15:33 LIP CUTTER AND SCORER.CSIR Anesthesia Postop Eval I: Fluid Summary Crystalloid volume administer 400 09/22/24 15:33 LIP CUTTER AND SCORER.CSIR (ml) Colloids volume administered ( ml) Blood Product volume administered (ml) Total IV fluid infused 400 09/22/24 15:33 LIP CUTTER AND SCORER.CSIR Anesthesia Postop Eval I: Summary Notes Anesthesia Complication No 09/22/24 15:33 LIP CUTTER AND SCORER.CSIR Anesthesia Complication Comment: Post-operative progress note Anesthesia: Postop Eval II Evaluation Mental status: Awake Pain Level: 0 nausea: No Vomiting: No Complications Anesthesia Complication: No
--- NOTE | 2024-09-22 15:56 | POSTOPAN2_ITS ---
Anesthesia Postop Eval I Sum Postop Eval Completion status Anesthesia document: Postop Eval 1 completed: Yes Anesthesia Postop Eval I Summary Anesthesia Postop Eval I Summary: Anesthesia Postop Eval I: Assessment Summary Airway patent Yes 09/22/24 15:33 PROPERTY INSURANCE AGENT.CSIR Spontaneous unlabored Yes 09/22/24 15:33 PROPERTY INSURANCE AGENT.CSIR respirations Mental status nausea No 09/22/24 15:33 PROPERTY INSURANCE AGENT.CSIR Vomiting No 09/22/24 15:33 PROPERTY INSURANCE AGENT.CSIR Anesthesia Postop Eval I: Fluid Summary Crystalloid volume administer 400 09/22/24 15:33 PROPERTY INSURANCE AGENT.CSIR (ml) Colloids volume administered ( ml) Blood Product volume administered (ml) Total IV fluid infused 400 09/22/24 15:33 PROPERTY INSURANCE AGENT.CSIR Anesthesia Postop Eval I: Summary Notes Anesthesia Complication No 09/22/24 15:33 PROPERTY INSURANCE AGENT.CSIR Anesthesia Complication Comment: Post-operative progress note Anesthesia: Postop Eval II Evaluation Mental status: Awake Pain Level: 0 nausea: No Vomiting: No Complications Anesthesia Complication: No
--- NOTE | 2024-09-22 15:56 | PCM.POSTANE2 ---
Anesthesia Postop Eval I Sum Postop Eval Completion status Anesthesia document: Postop Eval 1 completed: Yes Anesthesia Postop Eval I Summary Anesthesia Postop Eval I Summary: Anesthesia Postop Eval I: Assessment Summary Airway patent Yes 09/22/24 15:33 MEAT AND POULTRY INSPECTOR.CSIR Spontaneous unlabored Yes 09/22/24 15:33 MEAT AND POULTRY INSPECTOR.CSIR respirations Mental status nausea No 09/22/24 15:33 MEAT AND POULTRY INSPECTOR.CSIR Vomiting No 09/22/24 15:33 MEAT AND POULTRY INSPECTOR.CSIR Anesthesia Postop Eval I: Fluid Summary Crystalloid volume administer 400 09/22/24 15:33 MEAT AND POULTRY INSPECTOR.CSIR (ml) Colloids volume administered ( ml) Blood Product volume administered (ml) Total IV fluid infused 400 09/22/24 15:33 MEAT AND POULTRY INSPECTOR.CSIR Anesthesia Postop Eval I: Summary Notes Anesthesia Complication No 09/22/24 15:33 MEAT AND POULTRY INSPECTOR.CSIR Anesthesia Complication Comment: Post-operative progress note Anesthesia: Postop Eval II Evaluation Mental status: Awake Pain Level: 0 nausea: No Vomiting: No Complications Anesthesia Complication: No
--- NOTE | 2024-09-22 15:56 | PCM.POSTANE2 ---
Anesthesia Postop Eval I Sum Postop Eval Completion status Anesthesia document: Postop Eval 1 completed: Yes Anesthesia Postop Eval I Summary Anesthesia Postop Eval I Summary: Anesthesia Postop Eval I: Assessment Summary Airway patent Yes 09/22/24 15:33 VEGETABLE INSPECTOR.CSIR Spontaneous unlabored Yes 09/22/24 15:33 VEGETABLE INSPECTOR.CSIR respirations Mental status nausea No 09/22/24 15:33 VEGETABLE INSPECTOR.CSIR Vomiting No 09/22/24 15:33 VEGETABLE INSPECTOR.CSIR Anesthesia Postop Eval I: Fluid Summary Crystalloid volume administer 400 09/22/24 15:33 VEGETABLE INSPECTOR.CSIR (ml) Colloids volume administered ( ml) Blood Product volume administered (ml) Total IV fluid infused 400 09/22/24 15:33 VEGETABLE INSPECTOR.CSIR Anesthesia Postop Eval I: Summary Notes Anesthesia Complication No 09/22/24 15:33 VEGETABLE INSPECTOR.CSIR Anesthesia Complication Comment: Post-operative progress note Anesthesia: Postop Eval II Evaluation Mental status: Awake Pain Level: 0 nausea: No Vomiting: No Complications Anesthesia Complication: No
[2024-09-22 18:41] LABS: Hematocrit 28.2 % (37-47); Hemoglobin 9.3 g/dL (12.0-15.0); Mean Corpuscular Hgb 30.2 pg (27.0-32.0); Mean Corpuscular Volume 91.6 fL (81-99); Mean Platelet Vol. 9.3 fl (6.2-12.0); Platelet Count 124 K/mm3 (150-450); RBC Distribution Width CV 14.8 % (11.6-14.6); RBC Distribution Width SD 49.1 fl (35.1-43.9); Red Blood Count 3.08 M/mm3 (4.2-5.4); White Blood Count 3.5 K/mm3 (4.4-11.0)
[2024-09-23 05:00] VITALS: BP 111/54; PULSE 64; RESP 16; TEMP 36.4; O2SAT 95
[2024-09-23 06:12] LABS: Hematocrit 23.5 % (37-47); Hemoglobin 7.7 g/dL (12.0-15.0); Mean Corp Hgb Conc 32.8 g/dL (32-36); Mean Corpuscular Hgb 29.5 pg (27.0-32.0); Platelet Count 114 K/mm3 (150-450); RBC Distribution Width CV 14.7 % (11.6-14.6); RBC Distribution Width SD 48.1 fl (35.1-43.9); Red Blood Count 2.61 M/mm3 (4.2-5.4); White Blood Count 2.3 K/mm3 (4.4-11.0)
[2024-09-23 06:22] LABS: International Normalized Ratio 2.6
[2024-09-23 06:48] LABS: Anion Gap 9 (5-15); BUN 6 mg/dL (4-19); BUN/Creat Ratio 10.3 RATIO (10-20); Calcium,Total 8.1 mg/dL (7.6-11.0); Carbon Dioxide 21.9 mmol/L (21.0-32.0); Chloride 111 mmol/L (98-108); Creatinine, Serum 0.61 mg/dL (0.70-1.20); EST Glomerular Filtration Rate 89 (>60); Estimated Creatinine Clearance 55.67 ml/min (50-250); Glucose 100 mg/dL (70-99); Potassium 3.3 mmol/L (3.3-5.1); Sodium Level 142 mmol/L (133-145)
--- NOTE | 2024-09-23 08:59 | DCINST_ITS ---
Discharge Instructions Diet Discharge Diet: No restrictions Dressing / Incision Discharge Activity: Return to Normal Activity Weight Bearing Status: Weight bearing as tolerated Dressing / Incision Call your doctor if you observe: Fever of 101 or Higher, Coldness, Increased Pain, Numbness or Tingling, Change in Color, Inability to urinate, Inability to have a bowel movement, Shortness of breath, Dizziness, Fainting spells, Swelling in the ankles, Chest pain, Prolonged hiccupping, Increased palpitations (irregular heartbeat) and Calf discomfort Follow Up Care When: IN 2 WEEKS Test Results: Test results from this visit will be discussed in further detail at your follow- up appointment, if applicable. Discharge Plan Admission Admit Date/Time: 09/21/24 15:11 Primary Reason for Your Visit: Lower GI bleed due to ischemic colitis, factor V Leiden on warfarin Attending Provider: Eh Lee Primary Care Provider: Stacia Mosqueda Consulting Providers: Elena Jc; Andres [place] Instructions Additional Instructions / Restrictions: Advise CBC early next week on next Friday/Friday Discharge Orders/Prescriptions Prescriptions: No Action Centrum Silver Women 8 mg iron-400 mcg-50 mcg tablet 1 tab PO DAILY coenzyme Q10 10 mg capsule 10 mg PO DAILY ergocalciferol (vitamin D2) 1,250 mcg (50,000 unit) capsule 1,250 mcg PO QWEEK ascorbic acid (vitamin C) 500 mg tablet 500 mg PO DAILY zinc gluconate 100 mg tablet 100 mg PO DAILY cinnamon bark [Cinnamon] 500 mg capsule 500 mg PO 4X/DAY turmeric 400 mg capsule 400 mg PO DAILY vitamin B complex Tablet 1 tab PO DAILY warfarin [Jantoven] 6 mg tablet 6 mg PO DAILY@1700 Patient Comments: blood thinner Rx Instructions: managed by PCP Referrals / Follow Up: Stacia Mosqueda DO [Primary Care Provider] -
--- NOTE | 2024-09-23 08:59 | PCM.DC ---
Discharge Instructions Diet Discharge Diet: No restrictions DC O2, CPAP, BIPAP needs Home O2 Discharge instructions: No Dressing / Incision Discharge Activity: Return to Normal Activity Weight Bearing Status: Weight bearing as tolerated Dressing / Incision Call your doctor if you observe: Fever of 101 or Higher, Coldness, Increased Pain, Numbness or Tingling, Change in Color, Inability to urinate, Inability to have a bowel movement, Shortness of breath, Dizziness, Fainting spells, Swelling in the ankles, Chest pain, Prolonged hiccupping, Increased palpitations (irregular heartbeat) and Calf discomfort Follow Up Care When: IN 2 WEEKS Test Results: Test results from this visit will be discussed in further detail at your follow-up appointment, if applicable. Discharge Plan Admission Admit Date/Time: 09/21/24 15:11 Primary Reason for Your Visit: Lower GI bleed due to ischemic colitis, factor V Leiden on warfarin Attending Provider: Eh Lee Primary Care Provider: Stacia Mosqueda Consulting Providers: Elena Jc; Andres [place] Instructions Additional Instructions / Restrictions: Advise CBC early next week on next Friday/Friday. Check INR at home and follow with PCP to adjust the dose of warfarin. Discharge Orders/Prescriptions Prescriptions: New warfarin 5 mg tablet 5 mg PO .EVENING 30 Days Qty: 30 0RF Rx Instructions: Try to keep INR between 2-2.5 ferrous sulfate [FeroSul] 325 mg (65 mg iron) tablet 325 mg PO DAILY 30 Days Qty: 30 2RF Continued Centrum Silver Women 8 mg iron-400 mcg-50 mcg tablet 1 tab PO DAILY coenzyme Q10 10 mg capsule 10 mg PO DAILY ergocalciferol (vitamin D2) 1,250 mcg (50,000 unit) capsule 1,250 mcg PO QWEEK ascorbic acid (vitamin C) 500 mg tablet 500 mg PO DAILY zinc gluconate 100 mg tablet 100 mg PO DAILY vitamin B complex Tablet 1 tab PO DAILY Held cinnamon bark [Cinnamon] 500 mg capsule 500 mg PO 4X/DAY Hold Instructions: Because it might increase the INR turmeric 400 mg capsule 400 mg PO DAILY Hold Instructions: On WARFARIN Discontinued warfarin [Jantoven] 6 mg tablet 6 mg PO DAILY@1700 Patient Comments: blood thinner Rx Instructions: managed by PCP Referrals / Follow Up: Stacia Mosqueda DO [Primary Care Provider] - Kavin Ruelas DO [Med Staff - Active Staff] - Within 1 Month Disposition Disposition (needs filled in before D/C Order can be placed): Home, Self Care
--- NOTE | 2024-09-23 09:06 | DS.PCM_ITS ---
Providers Date of Admission: 09/21/24 Date of Discharge: 09/23/24 Primary Care Physician: Dr. Stacia Mosqueda, DO Consultations 09/21/24 17:18 Consult: Gastroenterology Routine Consulting Provider: [facility] Reason for Consult: concern for LGIB EMERGENT Consult: No MD Notified: Yes Date Notified: 09/21/24 Time Notified: 15:22 Method of Notification: Verbal Reason For Visit: BRIGHT RED BLOOD PER RECTUM Diagnosis Discharge Diagnosis (1) Acute on chronic blood loss anemia: Status: Chronic Code(s): D62 - Acute posthemorrhagic anemia (2) Rectal bleeding: Status: Acute Code(s): K62.5 - Hemorrhage of anus and rectum Plan Patient is an 84-year-old female who presented to [facility] ED on 09/21/24 with bright red blood per rectum. 1. Acute on chronic blood loss anemia secondary to acute lower GI bleed ? GI following. Presented with bright red blood per rectum. Hemoglobin 11.8 on admit, baseline around 13. Downtrended during hospitalization, most recent hemoglobin 8.5 on morning of 09/22. Colonoscopy on 09/22 showed one 8 mm polyp that was resected, localized moderate inflammation in the rectosigmoid, sigmoid and descending colon secondary to ischemic colitis that was biopsied. Okay to continue Coumadin as below. Follow-up CBC tonight and tomorrow morning. Monitor patient clinical status closely. Appreciate further GI recommendations. 09/23: H&H dropped to 7.7/23.5% but does not need blood transfusion. Hemodynamically patient is on baseline BP 111/54 heart rate 64/min, pulse ox 95% on room air. Patient wants to go home. Advised to keep INR between 2-2.5. Prescription given for ferrous sulfate and patient already on vitamin C. Advised to check CBC early next week and follow with PCP. Pantoprazole also prescribed 2. 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 INR 2.8 on admit. Was discussed with GI on admit and decision was made to continue Coumadin due to high risk of clotting. Will continue home Coumadin and monitor daily INR. 09/23: INR is 2.6. Warfarin dose decreased to 5 mg daily and start from today evening. 3. Class I obesity ? BMI 33 on admit. Complicates hospital course, care and prognosis. DVT prophylaxis: Not indicated, on Coumadin CODE STATUS: Full code, verified Discharge medication reconciliation done. Discharge follow-up instructions completed. Discharge process discussed with the patient and all questions were answered to patient's satisfaction. Follow with PCP in 1 to 2 weeks Total time spent, exact 35 minutes on discharge meds reconciliation, examination, coordination of care with nurses and ancillary staff, review of imaging and blood test and discussion with the patient on follow-up instructions. Medications at Discharge Home Medications ascorbic acid (vitamin C) 500 mg tablet 500 mg PO DAILY supplement 11/14/22 cinnamon bark 500 mg capsule (Cinnamon) 500 mg PO 4X/DAY supplement 11/14/22 Held on 09/23/24. Instructions: Because it might increase the INR coenzyme Q10 10 mg capsule 10 mg PO DAILY supplement 11/14/22 ergocalciferol (vitamin D2) 1,250 mcg (50,000 unit) capsule 1,250 mcg PO QWEEK supplement 11/14/22 nkrchxau-[id number] 8 mg-folic 400 mcg-K 50 mcg-lutein 300 mcg tablet (Centrum Silver Women) 1 tab PO DAILY supplement 11/14/22 turmeric 400 mg capsule 400 mg PO DAILY supplement 11/14/22 Held on 09/23/24. Instructions: On WARFARIN vitamin B complex 1 tab PO DAILY supplement 11/14/22 zinc gluconate 100 mg tablet 100 mg PO DAILY supplement 11/14/22 ferrous sulfate 325 mg (65 mg iron) tablet (FeroSul) 325 mg PO DAILY 1 month #30 tabs 09/23/24 pantoprazole 40 mg tablet,delayed release (Protonix) 40 mg PO DAILY 1 month #30 tabs 09/23/24 warfarin 5 mg tablet 5 mg PO .EVENING 1 month #30 tabs 09/23/24 Physical Exam Narrative Patient's granddaughter present in the room. Denies any acute symptoms. Patient asked for discharge. She has history of factor V Leiden and had multiple DVT probably 4 times or more. No abdominal pain. Having breakfast. Physical exam: General: Alert, Oriented x3, Cooperative HEENT: Atraumatic, PERRLA, EOMI, Normocephalic. Oral: No Gingival or Mucosal Lesions/ Ulcerations Neck: Supple, No JVD, Negative Carotid Bruits Chest wall/Lungs: Air entry diminished in bilateral lung bases. No crepitation/rhonchi Cardiovascular: Normal sinus, Normal S1,S2, systolic Abdomen: Bowel Sounds Present, Soft, Non Tender, Non-Distended : No dysuria. No renal angle tenderness. No suprapubic tenderness. Extremities: No edema, Capillary Refill Less than 3 Seconds Skin: No rashes, No breakdown Musculoskeletal: No Tenderness to Palpation of Joints or Extremities Neurological: Cranial nerves II-XII grossly intact, DTR 2+/4. No acute focal neurological deficit. Psych/Mental Status: Normal Affect, Appropriate. Weight / BMI Weight Weight: 191 lb 8.002 oz Body Mass Index (BMI) 33.9 ABG / Lab / Microbiology Data 09/23/24 05:53 09/23/24 05:53 Laboratory: Laboratory Results - last 24 hr 09/22/24 08:50: WBC 2.6 L, RBC 2.89 L, Hgb 8.5 L, Hct 26.0 L, MCV 90.0, MCH 29.4, MCHC 32.7, RDW Std Deviation 47.9 H, RDW Coeff of Nabila 14.6, Plt Count 129 L, MPV 9.1 09/22/24 18:30: WBC 3.5 L, RBC 3.08 L, Hgb 9.3 L, Hct 28.2 L, MCV 91.6, MCH 30.2, MCHC 33.0, RDW Std Deviation 49.1 H, RDW Coeff of Nabila 14.8 H, Plt Count 124 L, MPV 9.3 09/23/24 05:53: WBC 2.3 L, RBC 2.61 L, Hgb 7.7 L, Hct 23.5 L, MCV 90.0, MCH 29.5, MCHC 32.8, RDW Std Deviation 48.1 H, RDW Coeff of Nabila 14.7 H, Plt Count 114 L, MPV 9.0, PT 28.0 H, INR 2.6, Sodium 142, Potassium 3.3, Chloride 111 H, Carbon Dioxide 21.9, Anion Gap 9, BUN 6, Creatinine 0.61 L, Estim Creat Clear Calc 55.67, Est GFR (MDRD) Non-Af 89, BUN/Creatinine Ratio 10.3, Glucose 100 H, Calcium 8.1 D/C Instructions Discharge Diet: No restrictions Weight Bearing Status: Weight bearing as tolerated Call your doctor if you observe: Fever of 101 or Higher, Coldness, Increased Pain, Numbness or Tingling, Change in Color, Inability to urinate, Inability to have a bowel movement, Shortness of breath, Dizziness, Fainting spells, Swelling in the ankles, Chest pain, Prolonged hiccupping, Increased palpitations (irregular heartbeat) and Calf discomfort DC O2, CPAP, BIPAP Needs Home O2 Discharge instructions: No When: IN 2 WEEKS Meaningful Use Info Meaningful Use Meaningful Use Diagnoses (Choose all that apply): None applicable Ischemic Stroke Statin Dosing Therapy Reference: STATIN DOSE THERAPY REFERENCE: * Patients > 75 years receive moderate or high dose statin therapy. * Patients 75 years or YOUNGER should receive HIGH intensity statin dose unless contraindicated. You will be required to document reason for non-treatment if statin daily dose does not meet guidelines. HIGH DOSE STATIN THERAPY DAILY Atorvastatin > than or = to 40 mg Rosuvastatin > than or = to 20 mg Amlodipine + Atorvastatin > than or = to 2.5/40 mg Ezetimibe + Simvastatin 10/80 mg Simvastatin 80mg Discharge Plan Admission Admit Date/Time: 09/21/24 15:11 Primary Reason for Your Visit: Lower GI bleed due to ischemic colitis, factor V Leiden on warfarin Attending Provider: Eh Lee Primary Care Provider: Stacia Mosqueda Consulting Providers: Elena Jc; Andres [place] Instructions Additional Instructions / Restrictions: Advise CBC early next week on next Friday/Friday. Check INR at home and follow with PCP to adjust the dose of warfarin. Discharge Orders/Prescriptions Prescriptions: New warfarin 5 mg tablet 5 mg PO .EVENING 30 Days Qty: 30 0RF Rx Instructions: Try to keep INR between 2-2.5 ferrous sulfate [FeroSul] 325 mg (65 mg iron) tablet 325 mg PO DAILY 30 Days Qty: 30 2RF pantoprazole [Protonix] 40 mg tablet,delayed release (DR/EC) 40 mg PO DAILY 30 Days Qty: 30 1RF Continued Centrum Silver Women 8 mg iron-400 mcg-50 mcg tablet 1 tab PO DAILY coenzyme Q10 10 mg capsule 10 mg PO DAILY ergocalciferol (vitamin D2) 1,250 mcg (50,000 unit) capsule 1,250 mcg PO QWEEK ascorbic acid (vitamin C) 500 mg tablet 500 mg PO DAILY zinc gluconate 100 mg tablet 100 mg PO DAILY vitamin B complex Tablet 1 tab PO DAILY Held cinnamon bark [Cinnamon] 500 mg capsule 500 mg PO 4X/DAY Hold Instructions: Because it might increase the INR turmeric 400 mg capsule 400 mg PO DAILY Hold Instructions: On WARFARIN Discontinued warfarin [Jantoven] 6 mg tablet 6 mg PO DAILY@1700 Patient Comments: blood thinner Rx Instructions: managed by PCP Referrals / Follow Up: Stacia Mosqueda DO [Primary Care Provider] - FriendKavin DO [Med Staff - Active Staff] - Within 1 Month Disposition Disposition (needs filled in before D/C Order can be placed): Home, Self Care Charges/Coding Visit Charges Inpatient E&M: 61120 Disch Hosp >30min
[2024-09-23 09:13] VITALS: BP 134/52; PULSE 72; RESP 16; TEMP 37.1; O2SAT 96
--- NOTE | 2024-09-23 11:12 | CASEMGMT ---
Patient has order for discharge. RN CM into discuss needs at discharge. Patient denies needs or help at discharge. Patient had no further questions or concerns.
--- NOTE | 2024-09-23 11:12 | CASEMGMT ---
Patient has order for discharge. RN CM into discuss needs at discharge. Patient denies needs or help at discharge. Patient had no further questions or concerns.
--- NOTE | 2024-09-23 17:45 | PN_ITS ---
Progress Note Patient underwent colonoscopy yesterday for lower GI bleeding and was discovered to have significant diverticular disease along with adenomatous polyps that were removed. She has had no site of bleeding today. She restarted her Coumadin today. Physical Exam Narrative Patient's granddaughter present in the room. Denies any acute symptoms. Patient asked for discharge. She has history of factor V Leiden and had multiple DVT probably 4 times or more. No abdominal pain. Having breakfast. Physical exam: General: Alert, Oriented x3, Cooperative HEENT: Atraumatic, PERRLA, EOMI, Normocephalic. Oral: No Gingival or Mucosal Lesions/ Ulcerations Neck: Supple, No JVD, Negative Carotid Bruits Chest wall/Lungs: Air entry diminished in bilateral lung bases. No crepitation/rhonchi Cardiovascular: Normal sinus, Normal S1,S2, systolic Abdomen: Bowel Sounds Present, Soft, Non Tender, Non-Distended : No dysuria. No renal angle tenderness. No suprapubic tenderness. Extremities: No edema, Capillary Refill Less than 3 Seconds Skin: No rashes, No breakdown Musculoskeletal: No Tenderness to Palpation of Joints or Extremities Neurological: Cranial nerves II-XII grossly intact, DTR 2+/4. No acute focal neurological deficit. Psych/Mental Status: Normal Affect, Appropriate. Assessment & Plan Assessment/Plan (1) Acute on chronic blood loss anemia: (2) Rectal bleeding: PLAN: Plan Patient is an 84-year-old female who presented to [facility] ED on 09/21/24 with bright red blood per rectum. Acute on chronic blood loss anemia secondary to acute lower GI bleed ? She presented with bright red blood per rectum. Hemoglobin 11.8 on admit, baseline around 13. Downtrended during hospitalization, most recent hemoglobin 8.5 on morning of 09/22. Colonoscopy on 09/22 showed one 8 mm polyp that was resected, localized moderate inflammation in the rectosigmoid, sigmoid and descending colon secondary to ischemic colitis that was biopsied. Okay to forrest nue Coumadin as below. Follow-up CBC tonight and tomorrow morning. Monitor patient clinical status closely. 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 INR 2.8 on admit. I am okay with continuing home Coumadin and monitor daily INR. Visit Charges Inpatient E&M: [id number] [facility] Hosp L3
--- NOTE | 2024-09-23 17:45 | PN_ITS ---
Progress Note Patient underwent colonoscopy yesterday for lower GI bleeding and was discovered to have significant diverticular disease along with adenomatous polyps that were removed. She has had no site of bleeding today. She restarted her Coumadin today. Physical Exam Narrative Patient's granddaughter present in the room. Denies any acute symptoms. Patient asked for discharge. She has history of factor V Leiden and had multiple DVT probably 4 times or more. No abdominal pain. Having breakfast. Physical exam: General: Alert, Oriented x3, Cooperative HEENT: Atraumatic, PERRLA, EOMI, Normocephalic. Oral: No Gingival or Mucosal Lesions/ Ulcerations Neck: Supple, No JVD, Negative Carotid Bruits Chest wall/Lungs: Air entry diminished in bilateral lung bases. No crepitation/rhonchi Cardiovascular: Normal sinus, Normal S1,S2, systolic Abdomen: Bowel Sounds Present, Soft, Non Tender, Non-Distended : No dysuria. No renal angle tenderness. No suprapubic tenderness. Extremities: No edema, Capillary Refill Less than 3 Seconds Skin: No rashes, No breakdown Musculoskeletal: No Tenderness to Palpation of Joints or Extremities Neurological: Cranial nerves II-XII grossly intact, DTR 2+/4. No acute focal neurological deficit. Psych/Mental Status: Normal Affect, Appropriate. Assessment & Plan Assessment/Plan (1) Acute on chronic blood loss anemia: (2) Rectal bleeding: PLAN: Plan Patient is an 84-year-old female who presented to [facility] ED on 09/21/24 with bright red blood per rectum. Acute on chronic blood loss anemia secondary to acute lower GI bleed ? She presented with bright red blood per rectum. Hemoglobin 11.8 on admit, baseline around 13. Downtrended during hospitalization, most recent hemoglobin 8.5 on morning of 09/22. Colonoscopy on 09/22 showed one 8 mm polyp that was resected, localized moderate inflammation in the rectosigmoid, sigmoid and descending colon secondary to ischemic colitis that was biopsied. Okay to forrest nue Coumadin as below. Follow-up CBC tonight and tomorrow morning. Monitor patient clinical status closely. 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 INR 2.8 on admit. I am okay with continuing home Coumadin and monitor daily INR. Visit Charges Inpatient E&M: [id number] [facility] Hosp L3
== END 2024-09-23 12:15 | disposition home or self-care (01) | DRG 394 ==
LOC: ED 14:49 → PCU 15:25
PROVIDERS: Hospitalist; Internal Medicine Gastroenterology; Admitting Provider Internal Medicine; Emergency Provider Emergency Medicine; PCP Internal Medicine; Referring Provider Internal Medicine; Visit Provider Internal Medicine
PROC: 0DJD8ZZ Inspection of Lower Intestinal Tract, Via Natural or Artificial Opening Endoscopic (ICD-10-PCS; CPT 45378; principal; 2024-09-22 15:10)
DX: K55.9 Vascular disorder of intestine, unspecified (principal); D62 Acute posthemorrhagic anemia; D68.2 Hereditary deficiency of other clotting factors; K62.5 Hemorrhage of anus and rectum; Z68.33 Body mass index [BMI] 33.0-33.9, adult; K57.30 Diverticulosis of large intestine without perforation or abscess without bleeding; D12.0 Benign neoplasm of cecum; K63.89 Other specified diseases of intestine; E66.811 Obesity, class 1; Z86.718 Personal history of other venous thrombosis and embolism; Z86.711 Personal history of pulmonary embolism; Z79.01 Long term (current) use of anticoagulants
CPT/HCPCS: 36415; 74174; 80048; 85025; 85027; 85610; 85730; 86850; 86900; 86901; 88305; 93005; 99284; Q9967; A4216; J2405

== ENCOUNTER → 2024-09-27 | Outpatient (CLI) | payer MEDICARE, OTHER, SELFPAY ==
[2024-09-27 15:06] LABS: Absolute Lymphocyte Count 1.14 X10^3/uL (0.83-4.51); Absolute Neutrophil Count 1.2 X10^3/uL (2.0-7.7); Basophil# 0.01 X10^3/uL; Basophil% 0.4 % (0-1); Eosinophil# 0.02 X10^3/uL; Eosinophils% 0.7 % (0-5); Hematocrit 28.5 % (37-47); Hemoglobin 9.4 g/dL (12.0-15.0); Lymphocyte # 1.14 X10^3/ul (0.83-4.51); Lymphocyte % 42.7 % (19-41); Mean Corpuscular Hgb 30.1 pg (27.0-32.0); Mean Corpuscular Volume 91.3 fL (81-99); Mean Platelet Vol. 9.3 fl (6.2-12.0); Monocyte# 0.25 X10^3/uL; Monocyte% 9.4 % (0-10); NRBC Flagged by Analyzer 0 % (0-5); Neutrophil # 1.24 X10^3/uL (2.7-7.7); Neutrophil % 46.4 % (47-70); Platelet Count 182 K/mm3 (150-450); RBC Distribution Width CV 15.3 % (11.6-14.6); RBC Distribution Width SD 49.3 fl (35.1-43.9); Red Blood Count 3.12 M/mm3 (4.2-5.4); White Blood Count 2.7 K/mm3 (4.4-11.0)
== END | disposition home or self-care (01) ==
LOC: MTLAB 11:33
PROVIDERS: PCP Internal Medicine; Referring Provider Internal Medicine Gastroenterology; Visit Provider Internal Medicine Gastroenterology
DX: K62.5 Hemorrhage of anus and rectum (principal); D62 Acute posthemorrhagic anemia
CPT/HCPCS: 36415; 85025

== ENCOUNTER → 2024-10-27 | Outpatient (CLI) | payer MEDICARE, OTHER, SELFPAY ==
[2024-10-27 13:48] LABS: Hematocrit 36.3 % (37-47); Hemoglobin 11.7 g/dL (12.0-15.0); Immature Granulocytes Count 0.040 X10^3/uL (0.0-0.0); Mean Corp Hgb Conc 32.2 g/dL (32-36); Mean Corpuscular Volume 92.6 fL (81-99); Mean Platelet Vol. 8.7 fl (6.2-12.0); NRBC Flagged by Analyzer 0 % (0-5); Platelet Count 164 K/mm3 (150-450); RBC Distribution Width CV 14.0 % (11.6-14.6); RBC Distribution Width SD 47.9 fl (35.1-43.9); Red Blood Count 3.92 M/mm3 (4.2-5.4); White Blood Count 3.3 K/mm3 (4.4-11.0)
[2024-10-27 14:19] LABS: Iron 119 ug/dL (50-170)
== END | disposition home or self-care (01) ==
LOC: LAB 13:32
PROVIDERS: PCP Internal Medicine; Referring Provider Student in an Organized Health Care Education/Training Program; Visit Provider Student in an Organized Health Care Education/Training Program
DX: D64.9 Anemia, unspecified (principal)
CPT/HCPCS: 36415; 83540; 85025

== ENCOUNTER → 2024-11-25 | Outpatient (CLI) | payer MEDICARE, OTHER, SELFPAY ==
[2024-11-25 16:14] LABS: Hematocrit 36.1 % (37-47); Hemoglobin 11.6 g/dL (12.0-15.0); Immature Granulocytes Count 0.030 X10^3/uL (0.0-0.0); Mean Corp Hgb Conc 32.1 g/dL (32-36); Mean Corpuscular Volume 90.7 fL (81-99); Mean Platelet Vol. 9.8 fl (6.2-12.0); NRBC Flagged by Analyzer 0 % (0-5); POSITIVE MORPHOLOGY YES; Platelet Count 168 K/mm3 (150-450); RBC Distribution Width CV 13.3 % (11.6-14.6); RBC Distribution Width SD 43.8 fl (35.1-43.9); Red Blood Count 3.98 M/mm3 (4.2-5.4); White Blood Count 2.8 K/mm3 (4.4-11.0)
[2024-11-25 18:16] LABS: Differential Indicated SCAN CRITERIA MET
[2024-11-25 20:54] LABS: Differential Comment SCANNED
== END | disposition home or self-care (01) ==
LOC: MTLAB 14:04
PROVIDERS: PCP Internal Medicine; Referring Provider Internal Medicine; Visit Provider Internal Medicine
DX: D62 Acute posthemorrhagic anemia (principal)
CPT/HCPCS: 36415; 85025

== ENCOUNTER → 2025-01-06 | Outpatient (CLI) | payer MEDICARE, OTHER, SELFPAY ==
[2025-01-06 12:24] LABS: Hematocrit 37.5 % (37-47); Hemoglobin 12.0 g/dL (12.0-15.0); Immature Granulocytes Count 0.020 X10^3/uL (0.0-0.0); Mean Corp Hgb Conc 32.0 g/dL (32-36); Mean Corpuscular Volume 87.6 fL (81-99); Mean Platelet Vol. 9.8 fl (6.2-12.0); NRBC Flagged by Analyzer 0 % (0-5); Platelet Count 182 K/mm3 (150-450); RBC Distribution Width CV 13.7 % (11.6-14.6); RBC Distribution Width SD 43.1 fl (35.1-43.9); Red Blood Count 4.28 M/mm3 (4.2-5.4); White Blood Count 2.5 K/mm3 (4.4-11.0)
[2025-01-06 15:05] LABS: AST(SGOT) 25 U/L (<=31); Alanine Aminotransfer ALT/SGPT 14 U/L (<=34); Albumin, Serum 4.0 g/dL (3.4-4.8); Alkaline Phosphatase 74 U/L (35-104); Anion Gap 10 (5-15); BUN 11 mg/dL (4-19); BUN/Creat Ratio 17.6 RATIO (10-20); Calcium,Total 9.4 mg/dL (7.6-11.0); Carbon Dioxide 23.6 mmol/L (21.0-32.0); Chloride 106 mmol/L (98-108); Cholesterol 257 mg/dL (<=200); Globulin 3.2 g/dL (2.2-4.2); Glucose 96 mg/dL (70-99); Low Density Lipoprotein Calc. 163 mg/dL; Potassium 3.9 mmol/L (3.3-5.1); Triglycerides 138 mg/dL; Very Low Density Lipoprotein 28 mg/dL (5-40); cholesterol:hdl ratio screen 3.87
[2025-01-06 15:34] LABS: Vitamin D,25 Hydroxy 60.5 ng/mL (30-100)
== END | disposition home or self-care (01) ==
PROVIDERS: PCP Internal Medicine; Referring Provider Internal Medicine; Visit Provider Internal Medicine
DX: E78.00 Pure hypercholesterolemia, unspecified (principal); E55.9 Vitamin D deficiency, unspecified; R73.9 Hyperglycemia, unspecified
CPT/HCPCS: 36415; 80053; 80061; 82306; 83036; 84443; 85025

== ENCOUNTER → 2025-02-17 | Outpatient (CLI) | payer MEDICARE, OTHER, SELFPAY | END | disposition home or self-care (01) | LOC: PSN 10:08 | PROVIDERS: PCP Internal Medicine; Referring Provider Internal Medicine; Visit Provider Internal Medicine | DX: R00.2 Palpitations (principal) | CPT/HCPCS: 93225; 93226 ==

== ENCOUNTER → 2025-02-21 | Outpatient (CLI) | payer MEDICARE, OTHER, SELFPAY ==
--- NOTE | 2025-02-21 12:54 | ECHOD_ITS ---
Reason For Study : Aortic Stenosis Procedure This was a 2D Doppler, Color Flow transthoracic echocardiogram. Exam performed in department. Left Ventricle Normal LV size. Left ventricular systolic function is normal. The left ventricular ejection fraction is 65 %. Stage 1 diastolic dysfunction. No regional wall motion abnormalities noted. Right Ventricle Normal RV size. Normal systolic function. Atria Normal left atrium. Normal right atrium. Mitral Valve There is moderate mitral annular calcification. Tricuspid Valve Normal tricuspid valve. Aortic Valve Trisinus/trileaflet aortic valve. Mild focal aortic valve calcification. Peak aortic valve gradient 28 mmHg. Mean aortic valve gradient 16 mmHg. Mild aortic stenosis. Pulmonic Valve Normal pulmonic valve. Great Vessels Normal aortic root. Moderately calcified aortic root. The pulmonary artery is normal size. Inferior vena cava collapse with respiration. Pericardium/Pleural No pericardial effusion. MMode/2D Measurements & Calculations LVIDd: 5.2 cm IVSd: 0.97 cm LVOT diam: 1.9 cm LVIDs: 3.0 cm LVPWd: 1.0 cm LVOT area: 2.9 cm2 RVDd: 3.3 cm FS: 42.8 % Ao root diam: 3.8 cm LAV(MOD-bp): 78.0 ml LVAd ap4: 20.9 cm2 LAV(MOD-bp) Indexed: 41.7 ml/m2 LVLd ap4: 6.7 cm LAV(MOD-sp2): 80.9 ml EDV(MOD-sp4): 55.0 ml LAV(MOD-sp4): 64.1 ml EDV(sp4-el): 55.6 ml LVAs ap4: 10.1 cm2 LVLs ap4: 5.4 cm ESV(MOD-sp4): 16.7 ml ESV(sp4-el): 16.0 ml EF(MOD-sp4): 69.6 % EF(sp4-el): 71.2 % SV(MOD-sp4): 38.3 ml SV(sp4-el): 39.5 ml LA A4 area: 20.0 cm2 SI(MOD-sp4): 20.5 ml/m2 LA dimension(2D): 4.4 cm RA A4 area: 16.2 cm2 TAPSE: 2.1 cm Time Measurements MV dec time: 0.23 sec Doppler Measurements & Calculations MV E max hussein: 98.4 cm/sec Lat Peak E' Hussein: 7.2 cm/sec Med Peak E' Hussein: 4.6 cm/sec MV A max hussein: 107.6 cm/sec E/E' lat: 13.7 E/E' med: 21.2 MV E/A: 0.91 MV V2 max: 119.1 cm/sec MV P1/2t max hussein: 118.2 cm/sec Ao V2 max: 265.2 cm/sec MV max P.7 mmHg MV P1/2t: 83.9 msec Ao max P.2 mmHg MV V2 mean: 61.0 cm/sec Ao V2 mean: 191.1 cm/sec MV mean P.8 mmHg MV dec slope: 412.8 cm/sec2 Ao mean P.5 mmHg MV V2 VTI: 40.7 cm MVA(P1/2t): 2.6 cm2 Ao V2 VTI: 64.5 cm AV (velocity ratio): 0.43 MVA(VTI): 2.0 cm2 LUC(I,D): 1.3 cm2 LUC(V,D): 1.3 cm2 LV V1 max: 114.5 cm/sec SV(LVOT): 82.0 ml PA V2 max: 80.4 cm/sec LV V1 max P.2 mmHg LV V1 mean P.0 mmHg LV V1 mean: 80.9 cm/sec LV V1 VTI: 27.9 cm ECHO/Echo Complete Interpretation Summary Normal LV size. Left ventricular systolic function is normal. The left ventricular ejection fraction is 65 %. Stage 1 diastolic dysfunction. Mild focal aortic valve calcification. Mean aortic valve gradient 16 mmHg. Mild aortic stenosis. Ordering Physician: Stacia Mosqueda Referring Physician: Stacia Mosqueda Performed By: Stone Swanson RCS
== END | disposition home or self-care (01) ==
PROVIDERS: PCP Internal Medicine; Referring Provider Internal Medicine; Visit Provider Internal Medicine
DX: I35.0 Nonrheumatic aortic (valve) stenosis (principal)
CPT/HCPCS: 93306